=== PATIENT | female | born 1980 | race Caucasian/White ===

== ENCOUNTER 2018-05-07 10:26 | Emergency (ER) | payer BC, MEDICAID, OTHER ==
[2018-05-07] MEDS ORDERED: NORMAL SALINE 1000 ML 1,000 ML IV ONE ×2 (10:52→14:00)
[2018-05-07] MEDS ORDERED: LOPERAMIDE HCL 2 MG CAPSULE PO ONE (10:52)
[2018-05-07] MEDS ORDERED: ONDANSETRON HCL INJ/PF 4 MG/2 ML SDV IV ONE (10:52)
[2018-05-07] MEDS ORDERED: KETOROLAC TROMETHAMINE INJ/PF 30 MG/1 ML SDV IV ONE (10:52)
[2018-05-07 11:53] LABS: ABSOLUTE EOSINOPHILS # (AUTO) 0.1 10^3/uL (0.0-0.6); ABSOLUTE LYMPHOCYTES (AUTO) 1.3 10^3/uL (0.5-4.7); ABSOLUTE MONOCYTES (AUTO) 0.8 10^3/uL (0.1-1.4); ABSOLUTE NEUT (AUTO) 6.8 10^3/uL (1.7-8.2); BASOPHILS % (AUTO) 0.5 % (0-2); EOSINOPHILS % (AUTO) 1.4 % (0-6); HEMATOCRIT 39.4 % (36.0-47.0); HEMOGLOBIN 13.8 g/dL (12.0-15.5); MEAN CORPUSCULAR HGB CONC 34.9 g/dL (32.0-36.0); MEAN CORPUSCULAR VOLUME 83 fl (80-97); MONOCYTES % (AUTO) 9.1 % (3-13); PLATELET COUNT 307 10^3/uL (150-450); RED BLOOD COUNT 4.75 10^6/uL (3.72-5.28); RED CELL DISTRIBUTION WIDTH 13.2 % (11.5-14.0); TOTAL CELLS COUNTED % (AUTO) 100 %
[2018-05-07 12:13] LABS: ALANINE AMINOTRANSFERASE 29 U/L (9-52); ALBUMIN 4.8 g/dL (3.5-5.0); ALKALINE PHOSPHATASE 86 U/L (38-126); ANION GAP 13 (5-19); ASPARTATE AMINO TRANSFERASE 34 U/L (14-36); BILIRUBIN,DIRECT 0.1 mg/dL (0.0-0.4); BILIRUBIN,TOTAL 0.6 mg/dL (0.2-1.3); BLOOD UREA NITROGEN 5 mg/dL (7-20); CARBON DIOXIDE 30 mmol/L (22-30); CHLORIDE 97 mmol/L (98-107); GLUCOSE 90 mg/dL (75-110); POTASSIUM 3.3 mmol/L (3.6-5.0); SODIUM 140.2 mmol/L (137-145); TOTAL PROTEIN 7.8 g/dL (6.3-8.2)
[2018-05-07] MEDS ORDERED: IPRATROPIUM/ALBUTEROL 0.5-2.5 MG/3 ML AMPUL NEB ONE (12:27)
--- NOTE | 2018-05-07 12:27 | ER Document Report ---
Entered by GREGG LLAMAS SCRIBE 05/07/18 1057 Acting as scribe for:JORGE DEJESUS DO ED Medical Screen (RME) - General Chief Complaint: Chest Congestion Stated Complaint: DIZZINESS Time Seen by Provider: 05/07/18 10:47 Primary Care Provider: ESTEPHANIA OROSCO NP [Primary Care Provider] - Follow up as needed Mode of Arrival: Ambulatory Information source: Patient Notes: Patient is a 38 year old female presenting to the emergency department complaining of multiple symptoms including shortness of breath, dizziness, vomiting and a productive cough. Patient states her cough was onset 1 week ago around the same time her daughter was diagnosed with pneumonia. She states approximately 3 days ago she developed vomiting with her last episode occurring last night. She states today she developed dizziness described as "light headedness" and shortness of breath. She also complains of rib pain with coughing. I have greeted and performed a rapid initial assessment of this patient. A comprehensive ED assessment and evaluation of the patient, analysis of test results and completion of the medical decision making process will be conducted by additional ED providers. GENERAL: Alert, appears uncomfortable. HEAD: Normocephalic, Atraumatic. EYES: Pupils equal, round, and reactive to light. EOMI. ENT: Oral mucosa moist, tongue midline. NECK: Full range of motion. Supple. Trachea midline. LUNGS: Appears mildly short of breath, mildly tachpneic. Expiratory rhonchi in the RLL. HEART: Regular rate and rhythm. No murmurs, gallops, or rubs. ABDOMEN: Soft, non-tender. Non-distended. Bowel sounds present in all 4 quadrants. EXTREMITIES: Moves all four extremities spontaneously. PSYCH: Normal affect, normal mood. TRAVEL OUTSIDE OF THE [place] IN LAST 30 DAYS: No - Related Data Allergies/Adverse Reactions: Penicillins Allergy (Severe, Verified 05/07/18 10:26) Swelling of hands and/or feet Sulfa (Sulfonamide Antibiotics) Allergy (Severe, Verified 05/07/18 10:26) Swelling of hands and/or feet latex [Latex] Allergy (Mild, Verified 05/07/18 10:26) rash erythromycin base [Erythromycin Base] Adverse Reaction (Intermediate, Verified 05/07/18 10:26) Generalized Itching Past Medical History - Social History Family history: Reviewed & Not Pertinent - Past Medical History Cardiac Medical History: Denies: Hx Coronary Artery Disease, Hx Heart Attack, Hx Hypertension Pulmonary Medical History: Denies: Hx Asthma, Hx Bronchitis, Hx COPD, Hx Pneumonia Neurological Medical History: Denies: Hx Cerebrovascular Accident, Hx Seizures GI Medical History: Reports: Hx Irritable Bowel Musculoskeltal Medical History: Denies Hx Arthritis Traumatic Medical History: Reports: Hx Fractures - left wrist x 2 - Immunizations Hx Diphtheria, Pertussis, Tetanus Vaccination: Yes - 2010 Physical Exam - Vital signs Vitals: Temp Pulse Resp BP Pulse Ox 98.2 F 110 H 20 144/53 H 100 05/07/18 10:29 05/07/18 10:29 05/07/18 10:29 05/07/18 10:29 05/07/18 10:29 Course - Vital Signs Vital signs: Temp Pulse Resp BP Pulse Ox 98.2 F 110 H 20 144/53 H 100 05/07/18 10:29 05/07/18 10:29 05/07/18 10:29 05/07/18 10:29 05/07/18 10:29 Doctor's Discharge - Discharge Referrals: ESTEPHANIA OROSCO NP [Primary Care Provider] - Follow up as needed I personally performed the services described in the documentation, reviewed and edited the documentation which was dictated to the scribe in my presence, and it accurately records my words and actions.
--- NOTE | 2018-05-07 12:41 | RADIOLOGY REPORT (SQ) ---
EXAM DESCRIPTION: CHEST 2 VIEWS COMPLETED DATE/TIME: 05/07/2018 11:23 am REASON FOR STUDY: cough, shortness of breath COMPARISON: Chest x-ray 02/23/2011. EXAM PARAMETERS: NUMBER OF VIEWS: two views TECHNIQUE: Digital Frontal and Lateral radiographic views of the chest acquired. RADIATION DOSE: NA LIMITATIONS: none FINDINGS: LUNGS AND PLEURA: No consolidation, pneumothorax or pleural effusion. MEDIASTINUM AND HILAR STRUCTURES: No masses or contour abnormalities. HEART AND VASCULAR STRUCTURES: Heart normal size. No evidence for failure. BONES: No acute findings. HARDWARE: None in the chest. IMPRESSION: NO ACUTE RADIOGRAPHIC FINDING IN THE CHEST. TECHNICAL DOCUMENTATION: JOB ID: [id number] 2010 [employer]- All Rights Reserved Reading location - IP/workstation name: [email or web address]
[2018-05-07] MEDS ORDERED: ALBUTEROL SULFATE HFA (90 MCG/PUFF) 8 GM MDI (1 MDI/ER DISP) IH ONE (13:47)
--- NOTE | 2018-05-07 13:48 | ER Document Report ---
ED Respiratory Problem - General Chief Complaint: Chest Congestion Stated Complaint: DIZZINESS Time Seen by Provider: 05/07/18 10:47 Primary Care Provider: ESTEPHANIA OROSCO NP [ALLIED HEALTH PROFESSIONAL] - Follow up as needed Mode of Arrival: Ambulatory Notes: Patient is a 38-year-old female who presents to the emergency department with chief complaint of cough, congestion and dizziness. Patient reports symptoms have been going on for approximately 2-3 days. Denies any fevers, nausea, vomiting or diarrhea. Patient has no significant past medical or surgical history and does not take any medications on a daily basis. TRAVEL OUTSIDE OF THE [place] IN LAST 30 DAYS: No - Related Data Allergies/Adverse Reactions: Penicillins Allergy (Severe, Verified 05/07/18 10:57) Swelling of hands and/or feet Sulfa (Sulfonamide Antibiotics) Allergy (Severe, Verified 05/07/18 10:57) Swelling of hands and/or feet latex [Latex] Allergy (Mild, Verified 05/07/18 10:57) rash erythromycin base [Erythromycin Base] Adverse Reaction (Intermediate, Verified 05/07/18 10:57) Generalized Itching Past Medical History - General Information source: Patient - Social History Smoking Status: Never Smoker Frequency of alcohol use: None Drug Abuse: None Family History: Other Patient has suicidal ideation: No Patient has homicidal ideation: No - Past Medical History Cardiac Medical History: Denies: Hx Coronary Artery Disease, Hx Heart Attack, Hx Hypertension Pulmonary Medical History: Denies: Hx Asthma, Hx Bronchitis, Hx COPD, Hx Pneumonia Neurological Medical History: Denies: Hx Cerebrovascular Accident, Hx Seizures Renal/ Medical History: Denies: Hx Peritoneal Dialysis GI Medical History: Reports: Hx Irritable Bowel Musculoskeletal Medical History: Denies Hx Arthritis Traumatic Medical History: Reports: Hx Fractures - left wrist x 2 Past Surgical History: Reports: Hx Hysterectomy - Immunizations Hx Diphtheria, Pertussis, Tetanus Vaccination: Yes - 2010 Review of Systems - Review of Systems Constitutional: No symptoms reported, Other - Dizziness EENT: Nose congestion, Nose discharge, Sinus discharge Cardiovascular: No symptoms reported Respiratory: Cough Gastrointestinal: No symptoms reported Genitourinary: No symptoms reported Female Genitourinary: No symptoms reported Musculoskeletal: No symptoms reported Skin: No symptoms reported Hematologic/Lymphatic: No symptoms reported Neurological/Psychological: No symptoms reported Physical Exam - Vital signs Vitals: Temp Pulse Resp BP Pulse Ox 98.2 F 110 H 20 144/53 H 100 05/07/18 10:29 05/07/18 10:29 05/07/18 10:29 05/07/18 10:29 05/07/18 10:29 - Notes Notes: PHYSICAL EXAMINATION: GENERAL: Well-appearing, well-nourished and in no acute distress. HEAD: Atraumatic, normocephalic. EYES: Pupils equal round and reactive to light, extraocular movements intact, conjunctiva are normal. ENT: Nares patent, oropharynx clear without exudates. Moist mucous membranes. NECK: Normal range of motion, supple without lymphadenopathy LUNGS: Faint expiratory wheezes noted bilaterally. No increased work of breathing. HEART: Regular rate and rhythm without murmurs ABDOMEN: Soft, nontender, nondistended abdomen. No guarding, no rebound. No masses appreciated. Female : deferred Musculoskeletal: Normal range of motion, no pitting or edema. No cyanosis. NEUROLOGICAL: Cranial nerves grossly intact. Normal speech, normal gait. Normal sensory, motor exams PSYCH: Normal mood, normal affect. SKIN: Warm, Dry, normal turgor, no rashes or lesions noted. Course - Re-evaluation Re-evalutation: CMP shows potassium of 3.3. CBC is unremarkable. Patient given potassium replacement. Patient reports dizziness has improved after administration of meclizine. Chest x-ray negative for any acute findings to include pneumothorax or infiltrate. Patient will be discharged home in stable condition at this time. Strict ED return precautions discussed. - Vital Signs Vital signs: Temp Pulse Resp BP Pulse Ox 98.1 F 90 16 119/72 100 05/07/18 15:03 05/07/18 15:03 05/07/18 15:03 05/07/18 15:03 05/07/18 15:03 - Laboratory Result Diagrams: 05/07/18 11:32 05/07/18 11:32 Laboratory results interpreted by me: 05/07/18 11:32 Potassium 3.3 L Chloride 97 L BUN 5 L Discharge - Discharge Clinical Impression: Upper respiratory infection Qualifiers: URI type: unspecified URI Qualified Code(s): J06.9 - Acute upper respiratory infection, unspecified Condition: Stable Disposition: HOME, SELF-CARE Instructions: Upper Respiratory Illness ([facility]) Additional Instructions: Your chest x-ray was negative. Your symptoms are most likely consistent with a viral upper respiratory infection. I am sending you home with an albuterol inhaler, use 2 puffs every 4 hours as needed for any wheezing or shortness of breath. Please get the prescription filled for prednisone, start taking this to day. Please follow-up with your primary care provider in the next 3-5 days for follow-up. Drink plenty of fluids and rest over the next few days. Return to the emergency department if you develop worsening shortness of breath, difficulty breathing, fevers not relieved by Tylenol or ibuprofen or any other symptom that is concerning to you. Prescriptions: Meclizine HCl [Antivert 25 mg Tablet] 25 mg PO TID PRN #21 tablet PRN Reason: Prednisone [Deltasone 20 mg Tablet] 3 tab PO DAILY 5 Days #15 tablet Forms: Return to Work Referrals: ESTEPHANIA OROSCO, KRYSTLE [ALLIED HEALTH PROFESSIONAL] - Follow up as needed
[2018-05-07] MEDS ORDERED: MECLIZINE HCL 25 MG TABLET PO ONE (14:00)
[2018-05-07 15:10] VITALS: BP 119/72
== END 2018-05-07 15:05 | disposition home or self-care (01) ==
LOC: ER 10:26
DX: J06.9 Acute upper respiratory infection, unspecified (principal); R09.89 Other specified symptoms and signs involving the circulatory and respiratory systems; R42 Dizziness and giddiness; R05 Cough; R09.81 Nasal congestion
CPT/HCPCS: 94640; 99284; 96361; 96374; 96375; 36415; 85025; 80053; 71046; J1885; J2405; J7030; J3490; J7620

== ENCOUNTER 2019-04-25 12:31 | Inpatient (IN) | payer MEDICAID, OTHER ==
--- NOTE | 2019-04-25 13:01 | ER Document Report ---
ED Medical Screen (RME) - General Chief Complaint: Breathing Difficulty Stated Complaint: DIFFICULTY BREATHING Time Seen by Provider: 04/25/19 12:58 Mode of Arrival: Ambulatory Information source: Patient Notes: 39-year-old female presented to ED for complaint of shortness of breath and chest pain since last week when they diagnosed with upper respiratory infection. They started on azithromycin and Mucinex on Tuesday. She also has a tremor which she says she has had for a long time but they have not been able to figure out what the tremors are from. She states her pain is in her chest through to her back. EKG has a pulse rate of 130 apically she is running 140 at this time. I have greeted and performed a rapid initial assessment of this patient. A comprehensive ED assessment and evaluation of the patient, analysis of test results and completion of medical decision making process will be conducted by an additional ED providers. TRAVEL OUTSIDE OF THE [place] IN LAST 30 DAYS: No - Related Data Allergies/Adverse Reactions: Penicillins Allergy (Severe, Verified 05/07/18 10:57) Swelling of hands and/or feet Sulfa (Sulfonamide Antibiotics) Allergy (Severe, Verified 05/07/18 10:57) Swelling of hands and/or feet latex [Latex] Allergy (Mild, Verified 05/07/18 10:57) rash erythromycin base [Erythromycin Base] Adverse Reaction (Intermediate, Verified 05/07/18 10:57) Generalized Itching Past Medical History - Social History Family history: Reviewed & Not Pertinent - Past Medical History Cardiac Medical History: Denies: Hx Coronary Artery Disease, Hx Heart Attack, Hx Hypertension Pulmonary Medical History: Denies: Hx Asthma, Hx Bronchitis, Hx COPD, Hx Pneumonia Neurological Medical History: Denies: Hx Cerebrovascular Accident, Hx Seizures Renal/ Medical History: Denies: Hx Peritoneal Dialysis GI Medical History: Reports: Hx Irritable Bowel Musculoskeltal Medical History: Denies Hx Arthritis Traumatic Medical History: Reports: Hx Fractures - left wrist x 2 Past Surgical History: Reports: Hx Hysterectomy - Immunizations Hx Diphtheria, Pertussis, Tetanus Vaccination: Yes - 2010 Physical Exam - Vital signs Vitals: Temp Pulse Resp BP Pulse Ox 99.1 F 132 H 22 H 132/77 H 97 04/25/19 12:38 04/25/19 12:38 04/25/19 12:38 04/25/19 12:38 04/25/19 12:38 Course - Vital Signs Vital signs: Temp Pulse Resp BP Pulse Ox 99.1 F 132 H 22 H 132/77 H 97 04/25/19 12:38 04/25/19 12:38 04/25/19 12:38 04/25/19 12:38 04/25/19 12:38
[2019-04-25] MEDS ORDERED: ASPIRIN 81 MG TABLET, CHEWABLE PO ONE (13:02)
[2019-04-25 13:45] LABS: APPEARANCE,URINE CLEAR; BILIRUBIN,URINE NEGATIVE (NEGATIVE); COLOR,URINE STRAW; GLUCOSE, URINE NEGATIVE (NEGATIVE); KETONES,URINE NEGATIVE (NEGATIVE); LEUKOCYTE ESTERASE,URINE NEGATIVE (NEGATIVE); NITRITE,URINE NEGATIVE (NEGATIVE); PROTEIN,URINE NEGATIVE (NEGATIVE); URINE SPECIFIC GRAVITY 1.004; UROBILINOGEN,URINE NEGATIVE mg/dL (<2.0)
--- NOTE | 2019-04-25 13:49 | RADIOLOGY REPORT (SQ) ---
EXAM DESCRIPTION: CHEST 2 VIEWS COMPLETED DATE/TIME: 04/25/2019 1:22 pm REASON FOR STUDY: Chest pain shortness of breath tachycardia COMPARISON: PA and lateral views of the chest from 05/07/2018. EXAM PARAMETERS: NUMBER OF VIEWS: Two views. TECHNIQUE: PA and lateral views of the chest were obtained.. RADIATION DOSE: NA LIMITATIONS: none FINDINGS: LUNGS AND PLEURA: Asymmetric opacities in the right lower lobe. There is no pleural effus ion or pneumothorax. MEDIASTINUM AND HILAR STRUCTURES: No mediastinal or hilar contour abnormality. HEART AND VASCULAR STRUCTURES: The cardiac silhouette and pulmonary vasculature are within normal gardner its. BONES: No acute findings. HARDWARE: None in the chest. OTHER: No other finding. IMPRESSION: Asymmetric opacities in the right lower lobe. Correlate with clinical findings to exclu de a right lower lobe pneumonia. TECHNICAL DOCUMENTATION: JOB ID: [id number] [employer]- All Rights Reserved Reading location - IP/workstation name: [email or web address]
[2019-04-25] MEDS ORDERED: NORMAL SALINE 1000 ML 1,000 ML IV ONE ×2 (13:55→15:34)
[2019-04-25 13:58] LABS: ABSOLUTE BASOPHILS # (AUTO) 0.1 10^3/uL (0.0-0.2); ABSOLUTE LYMPHOCYTES (AUTO) 0.7 10^3/uL (0.5-4.7); ABSOLUTE MONOCYTES (AUTO) 0.3 10^3/uL (0.1-1.4); ABSOLUTE NEUT (AUTO) 7.6 10^3/uL (1.7-8.2); EOSINOPHILS % (AUTO) 0.1 % (0-6); HEMATOCRIT 41.5 % (36.0-47.0); HEMOGLOBIN 14.6 g/dL (12.0-15.5); LYMPHOCYTES % (AUTO) 8.4 % (13-45); MEAN CORPUSCULAR HEMOGLOBIN 29.1 pg (27.0-33.4); MEAN CORPUSCULAR HGB CONC 35.2 g/dL (32.0-36.0); MEAN CORPUSCULAR VOLUME 83 fl (80-97); MONOCYTES % (AUTO) 3.4 % (3-13); PLATELET COUNT 214 10^3/uL (150-450); RED BLOOD COUNT 5.01 10^6/uL (3.72-5.28); RED CELL DISTRIBUTION WIDTH 13.5 % (11.5-14.0); SEGMENTED NEUTROPHILS % (AUTO) 87.1 % (42-78); TOTAL CELLS COUNTED % (AUTO) 100 %; WHITE BLOOD COUNT 8.8 10^3/uL (4.0-10.5)
[2019-04-25 14:22] LABS: ALBUMIN 4.7 g/dL (3.5-5.0); ALKALINE PHOSPHATASE 125 U/L (38-126); ANION GAP 10 (5-19); ASPARTATE AMINO TRANSFERASE 87 U/L (14-36); BILIRUBIN,TOTAL 0.4 mg/dL (0.2-1.3); BLOOD UREA NITROGEN 8 mg/dL (7-20); CALCIUM 9.3 mg/dL (8.4-10.2); CARBON DIOXIDE 28 mmol/L (22-30); CHLORIDE 100 mmol/L (98-107); GLUCOSE 92 mg/dL (75-110); POTASSIUM 3.9 mmol/L (3.6-5.0)
[2019-04-25] MEDS ORDERED: CEFEPIME 2 GM/D5W RTU 2 GM/50 ML RTUPB IV ONE (15:34)
[2019-04-25] MEDS ORDERED: LEVOFLOXACIN 750 MG/D5W RTU 750 MG/150 ML RTUPB IV ONE (15:34)
[2019-04-25] MEDS ORDERED: IPRATROPIUM/ALBUTEROL 0.5-2.5 MG/3 ML AMPUL NEB ONE (15:34)
[2019-04-25] MEDS ORDERED: VANCOMYCIN HCL INJ 1000 MG VIAL IV ONE (15:35)
[2019-04-25] MEDS ORDERED: ACETAMINOPHEN 325 MG TABLET PO ONE (15:36)
--- NOTE | 2019-04-25 15:44 | ER Document Report ---
ED Respiratory Problem - General Chief Complaint: Chest Pain Stated Complaint: DIFFICULTY BREATHING Time Seen by Provider: 04/25/19 12:58 Mode of Arrival: Ambulatory Notes: Patient is a 39-year-old female with a history of IBS who comes in today with increased cough and difficulty breathing. Patient states that she was tired with a fever earlier this week and was started on azithromycin on Tuesday for bronchitis. States that difficulty breathing has gotten worse and now she feels lightheaded when she is sitting up. Has a history of asthma as a child. Unknown flu status. Denies . No other meds at home. Allergic to penicillin but is able to take amoxicillin. TRAVEL OUTSIDE OF THE [place] IN LAST 30 DAYS: No - HPI Patient complains to provider of: Short of breath Onset: Other - weejendLast Duration: Worse/persistent Quality of pain: Achy, Dull Chest pain/discomfort: Center Cough: Productive Sputum amount: Scant At home treatment: denies: Bronchodilators, CPAP, Diuretics, Inhaled steroids, Oral steroids, Oxygen, Singulair, Theophylline Associated symptoms: Fever Similar symptoms previously: No Recently seen / treated by doctor: Yes - Related Data Allergies/Adverse Reactions: Penicillins Allergy (Severe, Verified 04/25/19 13:06) Swelling of hands and/or feet Sulfa (Sulfonamide Antibiotics) Allergy (Severe, Verified 04/25/19 13:06) Swelling of hands and/or feet latex [Latex] Allergy (Mild, Verified 04/25/19 13:06) rash erythromycin base [Erythromycin Base] Adverse Reaction (Intermediate, Verified 04/25/19 13:06) Generalized Itching Past Medical History - General Information source: Patient - Social History Smoking Status: Never Smoker Frequency of alcohol use: None Drug Abuse: None Family History: Other Patient has suicidal ideation: No Patient has homicidal ideation: No - Past Medical History Cardiac Medical History: Denies: Hx Coronary Artery Disease, Hx Heart Attack, Hx Hypertension Pulmonary Medical History: Denies: Hx Asthma, Hx Bronchitis, Hx COPD, Hx Pneumonia Neurological Medical History: Denies: Hx Cerebrovascular Accident, Hx Seizures Renal/ Medical History: Denies: Hx Peritoneal Dialysis GI Medical History: Reports: Hx Irritable Bowel Musculoskeletal Medical History: Denies Hx Arthritis Traumatic Medical History: Reports: Hx Fractures - left wrist x 2 Past Surgical History: Reports: Hx Hysterectomy - Immunizations Hx Diphtheria, Pertussis, Tetanus Vaccination: Yes - 2010 Review of Systems - Review of Systems -: Yes All other systems reviewed and negative Physical Exam - Vital signs Vitals: Temp Pulse Resp BP Pulse Ox 99.1 F 132 H 22 H 132/77 H 97 04/25/19 12:38 04/25/19 12:38 04/25/19 12:38 04/25/19 12:38 04/25/19 12:38 Interpretation: Tachycardic, Tachypneic, Febrile - General General appearance: Alert In distress: Mild - HEENT Head: Normocephalic, Atraumatic Eyes: Normal Cornea: Normal Extraocular movements intact: Yes Mucous membranes: Dry Pharynx: Normal Neck: Normal - Respiratory Respiratory status: Tachypnea Breath sounds: Decreased air movement - b/l - Cardiovascular Rhythm: Tachycardia - Abdominal Inspection: Normal Distension: No distension Bowel sounds: Normal Tenderness: Nontender - Back Back: Normal - Extremities General upper extremity: Normal inspection, Nontender, Normal ROM General lower extremity: Normal inspection, Nontender, Normal ROM - Neurological Neuro grossly intact: Yes Cognition: Normal Orientation: AAOx4 Neo Coma Scale Eye Opening: Spontaneous [place] Coma Scale Verbal: Oriented Speech: Normal - Psychological Associated symptoms: Normal affect, Normal mood - Skin Skin Temperature: Warm Skin Moisture: Moist Skin Color: Flushed Course - Re-evaluation Re-evalutation: 04/25/19 15:45 Patient with clinical symptoms and chest x-ray consistent with pneumonia. Heart rate is 140 currently. Patient will have blood cultures and lactic sent and antibiotics initiated, as well as 30 mill liters per kilogram fluid bolus. She will require admission as she is on 2 L of oxygen to maintain her airway saturation. We will attempt to do nebulizer treatment and steroids to increase air movement. Patient is agreeable to this plan. 04/25/19 16:05 Patient discussed with hospitalist service. Will admit to IMCU. Patient is agreeable to this plan. Blood cultures, urine cultures, antibiotics initiated in the emergency department. - Vital Signs Vital signs: Temp Pulse Resp BP Pulse Ox 99.1 F 120 H 22 H 117/48 L 98 04/25/19 18:47 04/25/19 20:53 04/25/19 20:53 04/25/19 18:47 04/25/19 20:53 - Laboratory Result Diagrams: 04/25/19 13:40 04/25/19 13:40 Laboratory results interpreted by me: 04/25/19 04/25/19 04/25/19 13:05 13:40 13:40 Lymph % (Auto) 8.4 L Seg Neutrophils % 87.1 H D-Dimer Creatinine 0.48 L AST 87 H Urine Blood SMALL H 04/25/19 13:40 Lymph % (Auto) Seg Neutrophils % D-Dimer 0.54 H Creatinine AST Urine Blood - Diagnostic Test Radiology reviewed: Image reviewed, Reports reviewed - EKG Interpretation by Me EKG shows normal: Sinus rhythm Rate: Tachycardia - 130 Rhythm: No: A.Fib, A.Flutter Critical Care Note - Critical Care Note Total time excluding time spent on procedures (mins): 40 - Evaluation and management, multiple re-evaluations, consultation and coordination of admission, counseling patient and family. Discharge - Discharge Clinical Impression: Hypoxia Pneumonia Qualifiers: Pneumonia type: due to unspecified organism Laterality: right Lung location: unspecified part of lung Qualified Code(s): J18.9 - Pneumonia, unspecified organism Sepsis Qualifiers: Sepsis type: sepsis due to unspecified organism Sepsis acute organ dysfunction status: without acute organ dysfunction Qualified Code(s): A41.9 - Sepsis, unspecified organism Condition: Stable Disposition: ADMITTED INPATIENT Admitting Provider: Janine (Hospitalist) - Day Unit Admitted: [facility]
[2019-04-25 16:12] LABS: VENOUS BLOOD BASE EXCESS 0.1 mmol/L; VENOUS BLOOD HCO3 24.5 mmol/L (20-32); VENOUS BLOOD PCO2 38.8 mmHg (35-63); VENOUS BLOOD PH 7.42 (7.30-7.42)
[2019-04-25 16:23] LABS: INTERNATIONAL RATION (INR) 0.92; PROTHROMBIN TIME 12.3 SEC (11.4-15.4)
[2019-04-25] MEDS ORDERED: PROMETHAZINE HCL INJ 25 MG/1 ML VIAL IV PRN (16:30)
[2019-04-25] MEDS ORDERED: HYDROMORPHONE HCL INJ/PF 2 MG/ML AMPULE IV ONE (16:33)
--- NOTE | 2019-04-25 16:56 | PDOC H&P ---
History of Present Illness Admission Date/PCP: 04/25/2019 History of Present Illness: GLENDA CALLEJAS is a 39 year old female who states that since last Tuesday or 6 days ago she started feeling bad. Darted off with feeling tired fever and chills and a light cough she said in a couple days that seem to get better but then by Tuesday the cough is getting worse. It is mostly nonproductive. He went to an urgent care 2 days ago on Tuesday she said they thought her she had an upper respiratory illness and put her on a Z-Nick. No flu swab no chest x-ray was performed. States today she started feeling worse with a "hurting to breathe", shortness of breath and just feeling more tired. Patient states she has had no chest pain per se but she does have chest wall pain with deep inspiration and expiration. No nausea no vomiting. Patient does not smoke. 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 Etiology is unknown, patient says she has had an MRI scan of the brain which was normal. Past Medical History Cardiac Medical History: Denies: Coronary Artery Disease, Myocardial Infarction, Hypertension Pulmonary Medical History: Denies: Asthma, Bronchitis, Chronic Obstructive Pulmonary Disease (COPD), Pneumonia Neurological Medical History: Denies: Seizures Musculoskeltal Medical History: Denies: Arthritis Hematology: Reports: Anemia - hx of Past Surgical History Past Surgical History: Reports: Hysterectomy Social History Smoking Status: Never Smoker - Advance Directive Resuscitation Status: Full Code Family History Family History: Other Parental Family History Reviewed: No Children Family History Reviewed: No Sibling(s) Family History Reviewed.: No Medication/Allergy Home Medications: Azithromycin 1 tab PO ASDIR PRN 04/25/19 Allergies/Adverse Reactions: Penicillins Allergy (Severe, Verified 04/25/19 13:06) Swelling of hands and/or feet Sulfa (Sulfonamide Antibiotics) Allergy (Severe, Verified 04/25/19 13:06) Swelling of hands and/or feet latex [Latex] Allergy (Mild, Verified 04/25/19 13:06) rash erythromycin base [Erythromycin Base] Adverse Reaction (Intermediate, Verified 04/25/19 13:06) Generalized Itching Review of Systems Constitutional: PRESENT: chills, fatigue, fever(s), weakness Respiratory: PRESENT: cough Gastrointestinal: PRESENT: other - Rehab for the last 3 days secondary to his Zi thromax Neurological: ABSENT: abnormal gait, abnormal speech, confusion, dizziness, focal weakness, syncope Psychiatric: ABSENT: anxiety, depression, homidical ideation, suicidal ideation Physical Exam Vital Signs: Temp Pulse Resp BP Pulse Ox 100.6 F H 140 H 28 H 126/64 H 98 04/25/19 14:44 04/25/19 13:08 04/25/19 16:01 04/25/19 16:00 04/25/19 16:01 Intake & Output 04/24/19 04/25/19 04/26/19 06:59 06:59 06:59 Intake Total 1000 Balance 1000 Weight 68.039 kg General appearance: PRESENT: mild distress Respiratory exam: PRESENT: decreased breath sounds, tachypnea Cardiovascular exam: PRESENT: tachycardia Neurological exam: PRESENT: alert, awake, oriented to person, oriented to place, oriented to time, oriented to situation, CN II-XII grossly intact. ABSENT: motor sensory deficit Psychiatric exam: PRESENT: anxious Results Laboratory Results: 04/25/19 13:40 04/25/19 13:40 04/25/19 04/25/19 04/25/19 13:05 13:40 13:40 WBC 8.8 RBC 5.01 Hgb 14.6 Hct 41.5 MCV 83 MCH 29.1 MCHC 35.2 RDW 13.5 Plt Count 214 Seg Neutrophils % 87.1 H VBG pH VBG pCO2 VBG HCO3 VBG Base Excess Sodium 137.7 Potassium 3.9 Chloride 100 Carbon Dioxide 28 Anion Gap 10 BUN 8 Creatinine 0.48 L Est GFR ( Amer) > 60 Glucose 92 Lactic Acid Calcium 9.3 Total Bilirubin 0.4 AST 87 H Alkaline Phosphatase 125 Total Protein 8.0 Albumin 4.7 Serum HCG, Qual Urine Color STRAW Urine Appearance CLEAR Urine pH 7.0 Ur Specific [place] 1.004 Urine Protein NEGATIVE Urine Glucose (UA) NEGATIVE Urine Ketones NEGATIVE Urine Blood SMALL H Urine Nitrite NEGATIVE Ur Leukocyte Esterase NEGATIVE Urine WBC (Auto) 4 Urine RBC (Auto) 1 04/25/19 04/25/19 04/25/19 13:40 15:53 15:53 WBC RBC Hgb Hct MCV MCH MCHC RDW Plt Count Seg Neutrophils % VBG pH 7.42 VBG pCO2 38.8 VBG HCO3 24.5 VBG Base Excess 0.1 Sodium Potassium Chloride Carbon Dioxide Anion Gap BUN Creatinine Est GFR ( Amer) Glucose Lactic Acid 1.1 Calcium Total Bilirubin AST Alkaline Phosphatase Total Protein Albumin Serum HCG, Qual NEGATIVE Urine Color Urine Appearance Urine pH Ur Specific [place] Urine Protein Urine Glucose (UA) Urine Ketones Urine Blood Urine Nitrite Ur Leukocyte Esterase Urine WBC (Auto) Urine RBC (Auto) 04/25/19 13:40 Troponin I < 0.012 Impressions: Chest X-Ray 04/25/19 13:02 IMPRESSION: Asymmetric opacities in the right lower lobe. Correlate with clinical findings to exclude a right lower lobe pneumonia. Assessment and Plan - Diagnosis (1) Tachycardia Is this a current diagnosis for this admission?: Yes (2) Hypoxia Is this a current diagnosis for this admission?: Yes (3) Pneumonia Is this a current diagnosis for this admission?: Yes - Plan Summary Summary: Will put patient in the hospital for IV fluids, hydration, IV antibiotics.. I have ordered a flu swab in the emergency room as well as a d-dimer. Also patient will get IV pain medication. I think patient's tachycardia will come down when she gets more fluids as well as IV pain medicine. She has had 3 days of diarrhea secondary to the Zithromax. I have explained all this to the patient and her mother who was is in the room - Time Time Spent with patient: 35 or more minutes
[2019-04-25] MEDS: NORMAL SALINE 1000 ML 1,000 ML IV PRN (17:39)
[2019-04-25] MEDS: OXYCODONE-ACETAMINOPHEN 5-325 MG TABLET PO PRN ×2 (18:04→22:19)
[2019-04-25] MEDS: ENOXAPARIN SODIUM INJ 40 MG/0.4 ML DISP.SYRIN SUBCUT SCH (18:12)
--- NOTE | 2019-04-25 18:35 | EKG REPORT ---
SEVERITY:- OTHERWISE NORMAL ECG - SINUS TACHYCARDIA : Confirmed by: Katherine Vasquez MD 25-Apr-2019 18:34:57
[2019-04-25 19:54] LABS: A TYPE INFLUENZA AG NEGATIVE (NEGATIVE); B INFLUENZA AG NEGATIVE (NEGATIVE)
[2019-04-25] MEDS: LEVALBUTEROL HCL NEB 1.25 MG/3 ML AMPUL NEB PRN (20:53)
[2019-04-25] MEDS: ACETAMINOPHEN 325 MG TABLET PO PRN (20:55)
[2019-04-25] MEDS: FAMOTIDINE 20 MG TABLET PO SCH (21:05)
[2019-04-26] MEDS: NORMAL SALINE 1000 ML 1,000 ML IV PRN ×3 (00:05→17:17)
[2019-04-26] MEDS: OXYCODONE-ACETAMINOPHEN 5-325 MG TABLET PO PRN ×6 (03:35→23:19)
[2019-04-26] MEDS: LEVALBUTEROL HCL NEB 1.25 MG/3 ML AMPUL NEB PRN (03:45)
[2019-04-26 05:55] LABS: HEMATOCRIT 32.8 % (36.0-47.0); MEAN CORPUSCULAR VOLUME 83 fl (80-97); PLATELET COUNT 159 10^3/uL (150-450); RED BLOOD COUNT 3.96 10^6/uL (3.72-5.28); RED CELL DISTRIBUTION WIDTH 13.5 % (11.5-14.0)
[2019-04-26 05:59] LABS: HEMOGLOBIN 11.5 g/dL (12.0-15.5)
[2019-04-26] MEDS: CEFEPIME 1 GM/D5W RTU 1 GM/50 ML RTUPB IV SCH ×2 (06:00→17:21)
[2019-04-26 06:18] LABS: ANION GAP 12 (5-19); BLOOD UREA NITROGEN 5 mg/dL (7-20); CALCIUM 7.5 mg/dL (8.4-10.2); CARBON DIOXIDE 20 mmol/L (22-30); CHLORIDE 105 mmol/L (98-107); GLUCOSE 105 mg/dL (75-110); POTASSIUM 3.2 mmol/L (3.6-5.0)
[2019-04-26 07:13] LABS: ABSOLUTE LYMPHOCYTES# (MANUAL) 0.9 10^3/uL (0.5-4.7); ABSOLUTE MONOCYTES # (MANUAL) 0.1 10^3/uL (0.1-1.4); BAND NEUTROPHILS % (MANUAL) 3 % (3-5); BASOPHILS % (MANUAL) 0 % (0-2); EOSINOPHILS % (MANUAL) 0 % (0-6); LYMPHOCYTES % (MANUAL) 7 % (13-45); MONOCYTES % (MANUAL) 1 % (3-13); PLATELET COMMENT ADEQUATE; RBC MORPHOLOGY COMMENT NORMO-CYTIC/CHROMIC; SEGMENTED NEUTROPHILS % (MAN) 89 % (42-78); TOTAL CELLS COUNTED 100
[2019-04-26] MEDS: FAMOTIDINE 20 MG TABLET PO SCH ×2 (09:15→21:06)
[2019-04-26] MEDS: ENOXAPARIN SODIUM INJ 40 MG/0.4 ML DISP.SYRIN SUBCUT SCH (09:15)
[2019-04-26] MEDS: DOCUSATE SODIUM 100 MG CAPSULE PO SCH (09:16)
[2019-04-26] MEDS ORDERED: PROMETHAZINE HCL INJ 25 MG/1 ML VIAL IV PRN (10:30)
--- NOTE | 2019-04-26 11:19 | RADIOLOGY REPORT (SQ) ---
EXAM DESCRIPTION: CTA CHEST COMPLETED DATE/TIME: 04/26/2019 11:03 am REASON FOR STUDY: pneumonia, elevated DDimer COMPARISON: Chest films 04/25/2019, 05/07/2018 TECHNIQUE: CT scan of the chest performed using helical scanning technique with dynamic intravenous contrast injection. Images reviewed with lung, soft tissue and bone windows. Reconstructed coronal and sagittal MPR images reviewed. Additional 3 dimensional post-processing performed to develop Maximal Intensity Projection images ([place] P). All images stored on PACS. All CT scanners at this facility use dose modulation, iterative reconstruction, and/or weight based d osing when appropriate to reduce radiation dose to as low as reasonably achievable (ALARA). [facility]: Dose Right [facility]: CareDose [facility]: Dose Right [facility]: Teradose 4D [facility]: KeepFu CONTRAST TYPE AND DOSE: contrast/concentration: Isovue 350.00 mg/ml; Total Contrast Delivered: 50.0 ml; Total Saline Delivered: 80.0 ml Contrast bolus adequate for pulmonary arteries and aorta. RENAL FUNCTION: Creatinine 0.5 RADIATION DOSE: CT Rad equipment meets quality standard of care and radiation dose reduction techniq ues were employed. CTDIvol: 5.6 - 8.7 mGy. DLP: 317 mGy-cm. . LIMITATIONS: None. FINDINGS: LUNGS AND PLEURA: Dense consolidation is present in the bilateral lower lobes from pneumon ia. Patchy airspace disease right middle lobe. No pleural effusion. No pneumothorax. AORTA AND GREAT VESSELS: No aneurysm. No dissection. HEART: No pericardial effusion. No significant coronary artery calcifications. PULMONARY ARTERIES: No emboli visualized in the main pulmonary arteries or the segmental branches. HILAR AND MEDIASTINAL STRUCTURES: No identified masses or abnormal nodes. HARDWARE: None in the chest. UPPER ABDOMEN: No significant findings. Limited exam. THYROID AND OTHER SOFT TISSUES: No masses. No adenopathy. BONES: No acute or significant finding. 3D MIPS: Confirm above findings. OTHER: No other significant finding. IMPRESSION: No CT angio evidence of acute pulmonary emboli or thoracic aortic dissection Dense consolidation in the bilateral lower lobes worrisome for pneumonia. Minimal patchy right middl e lobe airspace disease COMMENT: Quality ID # [id number]: Final reports with documentation of one or more dose reduction techniques (e.g., Automated exposure control, adjustment of the mA and/or kV according to patient size, use of iterative reconstruction technique) TECHNICAL DOCUMENTATION: JOB ID: [id number] [employer]- All Rights Reserved Reading location - IP/workstation name: [email or web address]
[2019-04-26] MEDS: ACETAMINOPHEN 325 MG TABLET PO PRN (11:27)
[2019-04-26] MEDS: LEVOFLOXACIN 750 MG/D5W RTU 750 MG/150 ML RTUPB IV SCH (11:27)
--- NOTE | 2019-04-26 11:55 | PDOC PROGRESS REPORT ---
Subjective Progress Note for:: 04/26/19 Reason For Visit: PNEUMONIA,HYPOXIA,TACHYCARDIA,IRRITABLE BOWEL 04/26/2019 Patient admitted for shortness of breath, tachycardia, pneumonia Physical Exam Vital Signs: Temp Pulse Resp BP Pulse Ox 102.3 F H 74 18 122/62 98 04/26/19 11:19 04/26/19 11:19 04/26/19 11:19 04/26/19 11:19 04/26/19 11:19 Intake & Output 04/25/19 04/26/19 04/27/19 06:59 06:59 06:59 Intake Total 4415 418 Output Total 2 Balance 4413 418 Weight 71.6 kg General appearance: PRESENT: mild distress, other - Secondary to tachycardia and chest wall pain Respiratory exam: PRESENT: decreased breath sounds Cardiovascular exam: PRESENT: tachycardia Neurological exam: PRESENT: alert, awake, oriented to person, oriented to place, oriented to time, oriented to situation, CN II-XII grossly intact. ABSENT: motor sensory deficit Psychiatric exam: PRESENT: anxious Results Laboratory Results: 04/26/19 05:01 04/26/19 05:01 04/25/19 04/25/19 04/25/19 13:05 13:40 13:40 WBC 8.8 RBC 5.01 Hgb 14.6 Hct 41.5 MCV 83 MCH 29.1 MCHC 35.2 RDW 13.5 Plt Count 214 Seg Neutrophils % 87.1 H VBG pH VBG pCO2 VBG HCO3 VBG Base Excess Sodium 137.7 Potassium 3.9 Chloride 100 Carbon Dioxide 28 Anion Gap 10 BUN 8 Creatinine 0.48 L Est GFR ( Amer) > 60 Glucose 92 Lactic Acid Calcium 9.3 Total Bilirubin 0.4 AST 87 H Alkaline Phosphatase 125 Total Protein 8.0 Albumin 4.7 Serum HCG, Qual Urine Color STRAW Urine Appearance CLEAR Urine pH 7.0 Ur Specific [place] 1.004 Urine Protein NEGATIVE Urine Glucose (UA) NEGATIVE Urine Ketones NEGATIVE Urine Blood SMALL H Urine Nitrite NEGATIVE Ur Leukocyte Esterase NEGATIVE Urine WBC (Auto) 4 Urine RBC (Auto) 1 04/25/19 04/25/19 04/25/19 13:40 15:53 15:53 WBC RBC Hgb Hct MCV MCH MCHC RDW Plt Count Seg Neutrophils % VBG pH 7.42 VBG pCO2 38.8 VBG HCO3 24.5 VBG Base Excess 0.1 Sodium Potassium Chloride Carbon Dioxide Anion Gap BUN Creatinine Est GFR ( Amer) Glucose Lactic Acid 1.1 Calcium Total Bilirubin AST Alkaline Phosphatase Total Protein Albumin Serum HCG, Qual NEGATIVE Urine Color Urine Appearance Urine pH Ur Specific [place] Urine Protein Urine Glucose (UA) Urine Ketones Urine Blood Urine Nitrite Ur Leukocyte Esterase Urine WBC (Auto) Urine RBC (Auto) 04/26/19 04/26/19 05:01 05:01 WBC 13.0 H RBC 3.96 Hgb 11.5 L D Hct 32.8 L MCV 83 MCH 29.0 MCHC 35.0 RDW 13.5 Plt Count 159 Seg Neutrophils % Not Reportable VBG pH VBG pCO2 VBG HCO3 VBG Base Excess Sodium 136.7 L Potassium 3.2 L Chloride 105 Carbon Dioxide 20 L Anion Gap 12 BUN 5 L Creatinine 0.40 L Est GFR ( Amer) > 60 Glucose 105 Lactic Acid Calcium 7.5 L Total Bilirubin AST Alkaline Phosphatase Total Protein Albumin Serum HCG, Qual Urine Color Urine Appearance Urine pH Ur Specific [place] Urine Protein Urine Glucose (UA) Urine Ketones Urine Blood Urine Nitrite Ur Leukocyte Esterase Urine WBC (Auto) Urine RBC (Auto) 04/25/19 13:40 Troponin I < 0.012 Impressions: Chest X-Ray 04/25/19 13:02 IMPRESSION: Asymmetric opacities in the right lower lobe. Correlate with clinical findings to exclude a right lower lobe pneumonia. Chest/Abdomen CTA 04/26/19 00:00 IMPRESSION: No CT angio evidence of acute pulmonary emboli or thoracic aortic dissection Dense consolidation in the bilateral lower lobes worrisome for pneumonia. Minimal patchy right middle lobe airspace disease Assessment and Plan - Diagnosis (1) Tachycardia Is this a current diagnosis for this admission?: Yes (2) Hypoxia Is this a current diagnosis for this admission?: Yes (3) Pneumonia Qualifiers: Pneumonia type: due to unspecified organism Laterality: right Lung location: unspecified part of lung Qualified Code(s): J18.9 - Pneumonia, unspecified organism Is this a current diagnosis for this admission?: Yes - Plan Summary Summary: Will put patient in the hospital for IV fluids, hydration, IV antibiotics.. I have ordered a flu swab in the emergency room as well as a d-dimer. Also patient will get IV pain medication. I think patient's tachycardia will come down when she gets more fluids as well as IV pain medicine. She has had 3 days of diarrhea secondary to the Zithromax. I have explained all this to the patient and her mother who was is in the room 04/26/2019 Patient's fever has spiked up to 102.3 blood pressure still stable at 122/62 however patient is still tachycardic around 120-130 Oxygen saturation remains good however at 98% on [address] angiogram of the chest today showed no evidence of pulmonary embolism however it did show bilateral lower lobe pneumonia as well as a right middle lobe pneumonia White count is gone from 8.8 up to 13,000 Flu swab is negative Chemistry panel is normal Day 2 of Levaquin and cefepime Patient is currently receiving IV fluids at 150/h Blood cultures are pending - Time Time Spent with patient: 25-34 minutes
[2019-04-26] MEDS: PROMETHAZINE HCL INJ 25 MG/1 ML VIAL IV PRN (18:36)
[2019-04-27] MEDS: OXYCODONE-ACETAMINOPHEN 5-325 MG TABLET PO PRN ×4 (03:58→18:09)
[2019-04-27] MEDS: NORMAL SALINE 1000 ML 1,000 ML IV PRN ×3 (03:59→13:37)
[2019-04-27] MEDS: CEFEPIME 1 GM/D5W RTU 1 GM/50 ML RTUPB IV SCH ×2 (06:10→17:04)
[2019-04-27] MEDS: POTASSI CL 20 MEQ/50 ML RIDER 20 MEQ/50 ML RTUPB IV SCH ×2 (08:06→10:37)
[2019-04-27] MEDS: FAMOTIDINE 20 MG TABLET PO SCH ×2 (09:43→21:18)
[2019-04-27] MEDS: DOCUSATE SODIUM 100 MG CAPSULE PO SCH (09:44)
[2019-04-27] MEDS: ENOXAPARIN SODIUM INJ 40 MG/0.4 ML DISP.SYRIN SUBCUT SCH (09:44)
[2019-04-27] MEDS: LEVALBUTEROL HCL NEB 1.25 MG/3 ML AMPUL NEB PRN ×3 (10:21→19:58)
--- NOTE | 2019-04-27 10:45 | PDOC PROGRESS REPORT ---
Subjective Progress Note for:: 04/27/19 Reason For Visit: PNEUMONIA,HYPOXIA,TACHYCARDIA,IRRITABLE BOWEL 04/27/2019 Pneumonia, hypoxia, tachycardia, irritable bowel syndrome Physical Exam Vital Signs: Temp Pulse Resp BP Pulse Ox 99.2 F 104 H 16 115/61 96 04/27/19 07:51 04/27/19 10:22 04/27/19 10:22 04/27/19 07:51 04/27/19 10:22 Intake & Output 04/26/19 04/27/19 04/28/19 06:59 06:59 06:59 Intake Total 4415 2851 718 Output Total 2 Balance 4413 2851 718 Weight 71.6 kg 73 kg General appearance: PRESENT: mild distress, other - Patient states when her pain medicine wears off it hurts to take a deep inspiration or expiration Respiratory exam: PRESENT: decreased breath sounds, other - No wheezes Cardiovascular exam: PRESENT: RRR. ABSENT: diastolic murmur, rubs, systolic murmur Neurological exam: PRESENT: alert, awake, oriented to person, oriented to place, oriented to time, oriented to situation, CN II-XII grossly intact. ABSENT: motor sensory deficit Psychiatric exam: PRESENT: flat affect Results Laboratory Results: 04/26/19 05:01 04/26/19 05:01 04/25/19 13:40 Troponin I < 0.012 Impressions: Chest X-Ray 04/25/19 13:02 IMPRESSION: Asymmetric opacities in the right lower lobe. Correlate with clin ical findings to exclude a right lower lobe pneumonia. Chest/Abdomen CTA 04/26/19 00:00 IMPRESSION: No CT angio evidence of acute pulmonary emboli or thoracic aortic dissection Dense consolidation in the bilateral lower lobes worrisome for pneumonia. Minimal patchy right middle lobe airspace disease Assessment and Plan - Diagnosis (1) Tachycardia Is this a current diagnosis for this admission?: Yes (2) Hypoxia Is this a current diagnosis for this admission?: Yes (3) Pneumonia Qualifiers: Pneumonia type: due to unspecified organism Laterality: right Lung location: unspecified part of lung Qualified Code(s): J18.9 - Pneumonia, unspecified organism Is this a current diagnosis for this admission?: Yes - Plan Summary Summary: Will put patient in the hospital for IV fluids, hydration, IV antibiotics.. I have ordered a flu swab in the emergency room as well as a d-dimer. Also patient will get IV pain medication. I think patient's tachycardia will come down when she gets more fluids as well as IV pain medicine. She has had 3 days of diarrhea secondary to the Zithromax. I have explained all this to the patient and her mother who was is in the room 04/26/2019 Patient's fever has spiked up to 102.3 blood pressure still stable at 122/62 however patient is still tachycardic around 120-130 Oxygen saturation remains good however at 98% on [address] angiogram of the chest today showed no evidence of pulmonary embolism however it did show bilateral lower lobe pneumonia as well as a right middle lobe pneumonia White count is gone from 8.8 up to 13,000 Flu swab is negative Chemistry panel is normal Day 2 of Levaquin and cefepime Patient is currently receiving IV fluids at 150/h Blood cultures are pending 04/27/2019 Patient's temperature last night only went to 100.7 it is an improvement from the night before. Pulse also stable now at 100, no longer tachycardic. Blood pressure 111/70, O2 sat are being maintained on 2 L nasal cannula I am adding Toradol to her regimen for her chest wall pain. I called pharmacy and there was no contraindication concerning her sulfa allergy Patient feels as though she is making progress White count is still normal ,potassium slightly low and I will add K riders Continue IV Levaquin and cefepime Decrease IV fluids to 60/h - Time Time Spent with patient: 15-24 minutes
[2019-04-27] MEDS: KETOROLAC TROMETHAMINE INJ/PF 30 MG/1 ML SDV IV PRN ×2 (11:38→23:57)
[2019-04-27] MEDS: LEVOFLOXACIN 750 MG/D5W RTU 750 MG/150 ML RTUPB IV SCH (13:34)
[2019-04-27] MEDS: PROMETHAZINE HCL INJ 25 MG/1 ML VIAL IV PRN (17:59)
[2019-04-27] MEDS ORDERED: NORMAL SALINE 500 ML IV PRN (19:51)
[2019-04-27] MEDS: TEMAZEPAM 7.5 MG CAPSULE PO PRN (23:57)
[2019-04-28] MEDS: NORMAL SALINE 1000 ML 1,000 ML IV PRN ×2 (00:08→17:51)
[2019-04-28] MEDS: PROMETHAZINE HCL INJ 25 MG/1 ML VIAL IV PRN ×2 (00:11→14:27)
[2019-04-28] MEDS: CEFEPIME 1 GM/D5W RTU 1 GM/50 ML RTUPB IV SCH ×2 (05:41→17:51)
[2019-04-28] MEDS: OXYCODONE-ACETAMINOPHEN 5-325 MG TABLET PO PRN ×2 (05:45→12:39)
[2019-04-28] MEDS: LEVALBUTEROL HCL NEB 1.25 MG/3 ML AMPUL NEB PRN (08:27)
[2019-04-28 08:45] LABS: ABSOLUTE EOSINOPHILS # (AUTO) 0.1 10^3/uL (0.0-0.6); ABSOLUTE LYMPHOCYTES (AUTO) 0.9 10^3/uL (0.5-4.7); ABSOLUTE MONOCYTES (AUTO) 0.4 10^3/uL (0.1-1.4); ABSOLUTE NEUT (AUTO) 5.7 10^3/uL (1.7-8.2); BASOPHILS % (AUTO) 0.4 % (0-2); EOSINOPHILS % (AUTO) 1.2 % (0-6); HEMATOCRIT 28.9 % (36.0-47.0); HEMOGLOBIN 10.1 g/dL (12.0-15.5); LYMPHOCYTES % (AUTO) 12.7 % (13-45); MEAN CORPUSCULAR HEMOGLOBIN 29.5 pg (27.0-33.4); MEAN CORPUSCULAR HGB CONC 35.1 g/dL (32.0-36.0); MEAN CORPUSCULAR VOLUME 84 fl (80-97); MONOCYTES % (AUTO) 5.9 % (3-13); PLATELET COUNT 179 10^3/uL (150-450); RED BLOOD COUNT 3.44 10^6/uL (3.72-5.28); RED CELL DISTRIBUTION WIDTH 13.3 % (11.5-14.0); SEGMENTED NEUTROPHILS % (AUTO) 79.8 % (42-78); TOTAL CELLS COUNTED % (AUTO) 100 %; WHITE BLOOD COUNT 7.2 10^3/uL (4.0-10.5)
[2019-04-28 09:05] LABS: ANION GAP 7 (5-19); BLOOD UREA NITROGEN 7 mg/dL (7-20); CALCIUM 8.2 mg/dL (8.4-10.2); CARBON DIOXIDE 25 mmol/L (22-30); CHLORIDE 105 mmol/L (98-107); GLUCOSE 84 mg/dL (75-110)
[2019-04-28] MEDS: FAMOTIDINE 20 MG TABLET PO SCH ×2 (09:13→22:25)
[2019-04-28] MEDS: KETOROLAC TROMETHAMINE INJ/PF 30 MG/1 ML SDV IV PRN (09:14)
[2019-04-28] MEDS: DOCUSATE SODIUM 100 MG CAPSULE PO SCH (09:14)
--- NOTE | 2019-04-28 10:31 | PDOC PROGRESS REPORT ---
Subjective Progress Note for:: 04/28/19 Reason For Visit: PNEUMONIA,HYPOXIA,TACHYCARDIA,IRRITABLE BOWEL 04/28/2019 Pneumonia, hypoxia, tachycardia, irritable bowel syndrome Physical Exam Vital Signs: Temp Pulse Resp BP Pulse Ox 99.0 F 78 26 H 116/67 100 04/28/19 04:32 04/28/19 07:00 04/28/19 04:32 04/28/19 04:32 04/28/19 04:32 Intake & Output 04/27/19 04/28/19 04/29/19 06:59 06:59 06:59 Intake Total 2851 3784 Output Total 0 Balance 2851 3784 Weight 73 kg 74.3 kg General appearance: PRESENT: mild distress Respiratory exam: PRESENT: decreased breath sounds, other Cardiovascular exam: PRESENT: RRR. ABSENT: diastolic murmur, rubs, systolic murmur Neurological exam: PRESENT: alert, awake, oriented to person, oriented to place, oriented to time, oriented to situation, CN II-XII grossly intact. ABSENT: motor sensory deficit Psychiatric exam: PRESENT: flat affect Results Laboratory Results: 04/28/19 08:13 04/28/19 08:13 04/28/19 04/28/19 08:13 08:13 WBC 7.2 RBC 3.44 L Hgb 10.1 L Hct 28.9 L MCV 84 MCH 29.5 MCHC 35.1 RDW 13.3 Plt Count 179 Seg Neutrophils % 79.8 H Sodium 136.6 L Potassium 4.0 Chloride 105 Carbon Dioxide 25 Anion Gap 7 BUN 7 Creatinine 0.47 L Est GFR ( Amer) > 60 Glucose 84 Calcium 8.2 L 04/25/19 13:05 Clean Catch Midstream Urine Culture - Final NO GROWTH 2 DAYS 04/25/19 13:40 Troponin I < 0.012 Impressions: Chest X-Ray 04/25/19 13:02 IMPRESSION: Asymmetric opacities in the right lower lobe. Correlate with clinical findings to exclude a right lower lobe pneumonia. Chest/Abdomen CTA 04/26/19 00:00 IMPRESSION: No CT angio evidence of acute pulmonary emboli or thoracic aortic dissection Dense consolidation in the bilateral lower lobes worrisome for pneumonia. Minimal patchy right middle lobe airspace disease Assessment and Plan - Diagnosis (1) Tachycardia Is this a current diagnosis for this admission?: Yes (2) Hypoxia Is this a current diagnosis for this admission?: Yes (3) Pneumonia Qualifiers: Pneumonia type: due to unspecified organism Laterality: right Lung location: unspecified part of lung Qualified Code(s): J18.9 - Pneumonia, unspecified organism Is this a current diagnosis for this admission?: Yes - Plan Summary Summary: Will put patient in the hospital for IV fluids, hydration, IV antibiotics.. I have ordered a flu swab in the emergency room as well as a d-dimer. Also patient will get IV pain medication. I think patient's tachycardia will come down when she gets more fluids as well as IV pain medicine. She has had 3 days of diarrhea secondary to the Zithromax. I have explained all this to the patient and her mother who was is in the room 04/26/2019 Patient's fever has spiked up to 102.3 blood pressure still stable at 122/62 however patient is still tachycardic around 120-130 Oxygen saturation remains good however at 98% on [address] angiogram of the chest today showed no evidence of pulmonary embolism however it did show bilateral lower lobe pneumonia as well as a right middle lobe pneumonia White count is gone from 8.8 up to 13,000 Flu swab is negative Chemistry panel is normal Day 2 of Levaquin and cefepime Patient is currently receiving IV fluids at 150/h Blood cultures are pending 04/27/2019 Patient's temperature last night only went to 100.7 it is an improvement from the night before. Pulse also stable now at 100, no longer tachycardic. Blood pressure 111/70, O2 sat are being maintained on 2 L nasal cannula I am adding Toradol to her regimen for her chest wall pain. I called pharmacy and there was no contraindication concerning her sulfa allergy Patient feels as though she is making progress White count is still normal ,potassium slightly low and I will add K riders Continue IV Levaquin and cefepime Decrease IV fluids to 60/h 04/28/2019 Temperature 99. Last fever was 102.3 at 1119 on 04/26/2019 Blood pressure stable at 116/67 O2 sat is 100% on 1-1/2 L of nasal cannula Loud cultures are negative x48 hours White blood cell count is down to 7.2 from 13 Chemistry is stable although BUN is up slightly to 7 and creatinine is up slightly to 0.47 calcium is normal 8.2. Potassium today is up to 4.0 Continue IV antibiotics. Continue trying to get patient up out of bed walking more to build up her endurance. I have discussed all this with patient and family - Time Time Spent with patient: 25-34 minutes
[2019-04-28] MEDS: ENOXAPARIN SODIUM INJ 40 MG/0.4 ML DISP.SYRIN SUBCUT SCH (11:37)
[2019-04-28] MEDS ORDERED: DIPHENHYDRAMINE HCL 25 MG CAPSULE PO PRN (11:58)
[2019-04-28] MEDS: LEVOFLOXACIN 750 MG/D5W RTU 750 MG/150 ML RTUPB IV SCH (12:40)
[2019-04-28] MEDS ORDERED: MORPHINE SULFATE 10 MG/ML INJ ONE (13:41)
[2019-04-28] MEDS: GUAIFENESIN SYRP 200 MG/10 ML UDC PO PRN ×2 (14:18→22:25)
[2019-04-28 14:52] LABS: CREATINE KINASE MB < 0.22 ng/mL (<4.55); TROPONIN I < 0.012 ng/mL
--- NOTE | 2019-04-28 15:04 | RADIOLOGY REPORT (SQ) ---
EXAM DESCRIPTION: CT HEAD WITHOUT COMPLETED DATE/TIME: 04/28/2019 2:51 pm REASON FOR STUDY: severe headache COMPARISON: None. TECHNIQUE: Axial images acquired through the brain without intravenous contrast. Images reviewed wi th bone, brain and subdural windows. Images stored on PACS. All CT scanners at this facility use dose modulation, iterative reconstruction, and/or weight based d osing when appropriate to reduce radiation dose to as low as reasonably achievable (ALARA). [facility]: Dose Right [facility]: CareDose [facility]: Dose Right [facility]: Teradose 4D [facility]: [address] RADIATION DOSE: CT Rad equipment meets quality standard of care and radiation dose reduction techniq ues were employed. CTDIvol: 53.2 mGy. DLP: 991 mGy-cm. mGy. LIMITATIONS: None. FINDINGS: VENTRICLES: Normal size and contour. CEREBRUM: No mass effect. No hemorrhage. No midline shift. Normal moran/white matter differentiatio n. No evidence for acute territorial infarction. CEREBELLUM: No mass effect. No hemorrhage. No alteration of density. No evidence for acute infarct ion. EXTRAAXIAL SPACES: No fluid collections. ORBITS AND GLOBE: Symmetrical contour of the globes. CALVARIUM: No depressed skull fracture. PARANASAL SINUSES: No air-fluid level. SOFT TISSUES: No hematoma. IMPRESSION: NO ACUTE INTRACRANIAL IMAGING FINDINGS. EVIDENCE OF ACUTE STROKE: NO. COMMENT: Quality ID # [id number]: Final reports with documentation of one or more dose reduction techniques (e.g., Automated exposure control, adjustment of the mA and/or kV according to patient size, use of iterative reconstruction technique) TECHNICAL DOCUMENTATION: JOB ID: [id number]- All Rights Reserved Reading location - IP/workstation name: [email or web address]
[2019-04-28] MEDS ORDERED: MORPHINE SULFATE 10 MG/ML INJ IV PRN (16:39)
--- NOTE | 2019-04-28 21:19 | EKG REPORT ---
SEVERITY:- OTHERWISE NORMAL ECG - SINUS TACHYCARDIA : Confirmed by: Katherine Vasquez MD 28-Apr-2019 21:18:30
[2019-04-28] MEDS: TEMAZEPAM 7.5 MG CAPSULE PO PRN (22:27)
[2019-04-29] MEDS: OXYCODONE-ACETAMINOPHEN 5-325 MG TABLET PO PRN (03:44)
[2019-04-29] MEDS: CEFEPIME 1 GM/D5W RTU 1 GM/50 ML RTUPB IV SCH ×2 (06:17→18:51)
[2019-04-29] MEDS: LEVALBUTEROL HCL NEB 1.25 MG/3 ML AMPUL NEB PRN ×2 (08:14→22:18)
[2019-04-29] MEDS: BUTALB/ACETAMINOPHEN/CAFFEINE 1 TAB EACH PO PRN ×2 (08:43→13:19)
[2019-04-29] MEDS: GUAIFENESIN SYRP 200 MG/10 ML UDC PO PRN ×2 (08:44→22:38)
[2019-04-29] MEDS: DOCUSATE SODIUM 100 MG CAPSULE PO SCH (10:38)
[2019-04-29] MEDS: FAMOTIDINE 20 MG TABLET PO SCH ×2 (10:38→22:15)
--- NOTE | 2019-04-29 11:50 | PDOC PROGRESS REPORT ---
Subjective Progress Note for:: 04/29/19 Reason For Visit: PNEUMONIA,HYPOXIA,TACHYCARDIA,IRRITABLE BOWEL 04/29/2019 She was originally admitted for pneumonia, however since admission she has had multiple complaints involving migraines, chest wall pain, what appears to be clinical depression Physical Exam Vital Signs: Temp Pulse Resp BP Pulse Ox 99.0 F 85 16 123/66 94 04/29/19 04:25 04/29/19 08:15 04/29/19 08:15 04/29/19 04:25 04/29/19 08:15 Intake & Output 04/28/19 04/29/19 04/30/19 06:59 06:59 06:59 Intake Total 3784 2760 50 Output Total 0 Balance 3784 2760 50 Weight 74.3 kg 74.4 kg General appearance: PRESENT: no acute distress Respiratory exam: PRESENT: clear to auscultation tashia, decreased breath sounds, other - Decreased breath sounds due to poor inspiratory and expiratory effort. ABSENT: rales, rhonchi, wheezes Cardiovascular exam: PRESENT: RRR. ABSENT: diastolic murmur, rubs, systolic murmur Neurological exam: PRESENT: alert, awake, oriented to person, oriented to place, oriented to time, oriented to situation, CN II-XII grossly intact. ABSENT: motor sensory deficit Psychiatric exam: PRESENT: depressed, flat affect, unusual affect. ABSENT: homicidal ideation, suicidal ideation Results Laboratory Results: 04/28/19 08:13 04/28/19 08:13 04/29/19 09:06 C-Reactive Protein 161.0 H 04/25/19 04/28/19 04/28/19 13:40 14:10 14:10 Creatine Kinase 24 L CK-MB (CK-2) < 0.22 Troponin I < 0.012 < 0.012 Impressions: Chest X-Ray 04/25/19 13:02 IMPRESSION: Asymmetric opacities in the right lower lobe. Correlate with clinical findings to exclude a right lower lobe pneumonia. Chest/Abdomen CTA 04/26/19 00:00 IMPRESSION: No CT angio evidence of acute pulmonary emboli or thoracic aortic dissection Dense consolidation in the bilateral lower lobes worrisome for pneumonia. Minimal patchy right middle lobe airspace disease Head CT 04/28/19 00:00 IMPRESSION: NO ACUTE INTRACRANIAL IMAGING FINDINGS. EVIDENCE OF ACUTE STROKE: NO. Assessment and Plan - Diagnosis (1) Tachycardia Is this a current diagnosis for this admission?: Yes (2) Hypoxia Is this a current diagnosis for this admission?: Yes (3) Pneumonia Qualifiers: Pneumonia type: due to unspecified organism Laterality: right Lung location: unspecified part of lung Qualified Code(s): J18.9 - Pneumonia, unspecified organism Is this a current diagnosis for this admission?: Yes (5) Migraines Is this a current diagnosis for this admission?: Yes (6) Irritable bowel syndrome Is this a current diagnosis for this admission?: Yes - Plan Summary Summary: Will put patient in the hospital for IV fluids, hydration, IV antibiotics.. I have ordered a flu swab in the emergency room as well as a d-dimer. Also patient will get IV pain medication. I think patient's tachycardia will come down when she gets more fluids as well as IV pain medicine. She has had 3 days of diarrhea secondary to the Zithromax. I have explained all this to the patient and her mother who was is in the room 04/26/2019 Patient's fever has spiked up to 102.3 blood pressure still stable at 122/62 however patient is still tachycardic around 120-130 Oxygen saturation remains good however at 98% on [address] angiogram of the chest today showed no evidence of pulmonary embolism however it did show bilateral lower lobe pneumonia as well as a right middle lobe pneumonia White count is gone from 8.8 up to 13,000 Flu swab is negative Chemistry panel is normal Day 2 of Levaquin and cefepime Patient is currently receiving IV fluids at 150/h Blood cultures are pending 04/27/2019 Patient's temperature last night only went to 100.7 it is an improvement from the night before. Pulse also stable now at 100, no longer tachycardic. Blood pressure 111/70, O2 sat are being maintained on 2 L nasal cannula I am adding Toradol to her regimen for her chest wall pain. I called pharmacy and there was no contraindication concerning her sulfa allergy Patient feels as though she is making progress White count is still normal ,potassium slightly low and I will add K riders Continue IV Levaquin and cefepime Decrease IV fluids to 60/h 04/28/2019 Temperature 99. Last fever was 102.3 at 1119 on 04/26/2019 Blood pressure stable at 116/67 O2 sat is 100% on 1-1/2 L of nasal cannula Loud cultures are negative x48 hours White blood cell count is down to 7.2 from 13 Chemistry is stable although BUN is up slightly to 7 and creatinine is up s lightly to 0.47 calcium is normal 8.2. Potassium today is up to 4.0 Continue IV antibiotics. Continue trying to get patient up out of bed walking more to build up her endurance. I have discussed all this with patient and family 04/29/2019 Vital signs are actually stable, she has not had a fever now for over 72 hours Pulse is between 80 and 90 and blood pressure is 123/66 She tells me that she has about 5 migraines per week and takes Goody powders 2-3 times every day. Also seems to be fixated on her tremors that she has had for 3 years and was seen by neurology for 3 years ago with an MRI scan, no cause was found by that neurologist Patient also appears to be weak in the bed shows very little initiative to get up out of bed. Her white count remains normal 7.2 hemoGlobin has drifted down a bit to 10.1, platelets are still adequate at 179,000 Sed rate today is 78 CRP is elevated to 161 Blood culture showed no growth in 72 hours Urine culture was negative in 48 hours Ordered repeat flu swab as this really continues to look more like a viral syndrome to me. MRI and MRA of the brain tomorrow 2 view of the chest x-ray has been ordered for today She had another headache last night that seem to be migraine was treated with good results with plain Fioricet. Patient was given morphine and she did not like the way it made her feel that that was the second time some morphine has been discontinued - Time Time Spent with patient: 25-34 minutes
[2019-04-29] MEDS: LEVOFLOXACIN 750 MG/D5W RTU 750 MG/150 ML RTUPB IV SCH (13:19)
[2019-04-29] MEDS: NORMAL SALINE 1000 ML 1,000 ML IV PRN (13:20)
[2019-04-29] MEDS: PROMETHAZINE HCL INJ 25 MG/1 ML VIAL IV PRN (15:32)
[2019-04-29 18:07] LABS: A TYPE INFLUENZA AG NEGATIVE (NEGATIVE); B INFLUENZA AG NEGATIVE (NEGATIVE)
[2019-04-29] MEDS: TEMAZEPAM 7.5 MG CAPSULE PO PRN (22:38)
[2019-04-30] MEDS: CEFEPIME 1 GM/D5W RTU 1 GM/50 ML RTUPB IV SCH ×2 (05:46→17:46)
[2019-04-30] MEDS: BUTALB/ACETAMINOPHEN/CAFFEINE 1 TAB EACH PO PRN (06:54)
[2019-04-30] MEDS: LEVALBUTEROL HCL NEB 1.25 MG/3 ML AMPUL NEB PRN ×3 (08:15→21:06)
--- NOTE | 2019-04-30 08:33 | RADIOLOGY REPORT (SQ) ---
EXAM DESCRIPTION: CHEST 2 VIEWS COMPLETED DATE/TIME: 04/29/2019 6:45 pm REASON FOR STUDY: Pneumonia COMPARISON: PA and lateral views of the chest from 04/25/2019 EXAM PARAMETERS: NUMBER OF VIEWS: Two views. TECHNIQUE: PA and lateral views of the chest were obtained.. RADIATION DOSE: NA LIMITATIONS: none FINDINGS: LUNGS AND PLEURA: Increased bibasilar pleural and parenchymal opacities that obscure the c ontour of the right hemidiaphragm and blunt the costophrenic sulci. There is no pneumothorax. MEDIASTINUM AND HILAR STRUCTURES: No mediastinal or hilar contour abnormality. HEART AND VASCULAR STRUCTURES: The cardiac silhouette and pulmonary vasculature are within normal gardner its. BONES: No acute findings. HARDWARE: None in the chest. OTHER: No other finding. IMPRESSION: Increased bibasilar pleural and parenchymal opacities that could represent a combination of pleural fluid, atelectasis and/or pneumonia. TECHNICAL DOCUMENTATION: JOB ID: [id number] 2011 [employer]- All Rights Reserved Reading location - IP/workstation name: [email or web address]
[2019-04-30] MEDS ORDERED: LORAZEPAM 0.5 MG TABLET PO PRN (09:03)
[2019-04-30] MEDS: FAMOTIDINE 20 MG TABLET PO SCH ×2 (09:05→21:47)
[2019-04-30] MEDS: DOCUSATE SODIUM 100 MG CAPSULE PO SCH (09:05)
[2019-04-30] MEDS: NORMAL SALINE 1000 ML 1,000 ML IV PRN (09:07)
--- NOTE | 2019-04-30 09:31 | PDOC PROGRESS REPORT ---
Subjective Progress Note for:: 04/30/19 Reason For Visit: PNEUMONIA,HYPOXIA,TACHYCARDIA,IRRITABLE BOWEL 04/30/2019 Pneumonia, weakness, tachycardia, irritable bowel syndrome, voluntary versus involuntary tremor Physical Exam Vital Signs: Temp Pulse Resp BP Pulse Ox 98.4 F 107 H 24 H 118/55 L 96 04/30/19 04:46 04/30/19 07:00 04/30/19 04:46 04/30/19 04:46 04/30/19 04:46 Intake & Output 04/29/19 04/30/19 05/01/19 06:59 06:59 06:59 Intake Total 2760 2741 192 Balance 2760 2741 192 Weight 74.4 kg General appearance: PRESENT: no acute distress, other - Sitting up in bed smiling states she feels much better today Respiratory exam: PRESENT: clear to auscultation tashia. ABSENT: rales, rhonchi, wheezes Cardiovascular exam: PRESENT: RRR. ABSENT: diastolic murmur, rubs, systolic murmur Neurological exam: PRESENT: alert, awake, oriented to person, oriented to place, oriented to time, oriented to situation, CN II-XII grossly intact. ABSENT: motor sensory deficit Psychiatric exam: PRESENT: appropriate affect, normal mood, other - First day that patient has been smiling and says she feels better since admission. ABSENT: homicidal ideation, suicidal ideation Results Laboratory Results: 04/28/19 08:13 04/28/19 08:13 04/29/19 09:06 C-Reactive Protein 161.0 H 04/25/19 04/28/19 04/28/19 13:40 14:10 14:10 Creatine Kinase 24 L CK-MB (CK-2) < 0.22 Troponin I < 0.012 < 0.012 Impressions: Chest/Abdomen CTA 04/26/19 00:00 IMPRESSION: No CT angio evidence of acute pulmonary emboli or thoracic aortic dissection Dense consolidation in the bilateral lower lobes worrisome for pneumonia. Minimal patchy right middle lobe airspace disease Head CT 04/28/19 00:00 IMPRESSION: NO ACUTE INTRACRANIAL IMAGING FINDINGS. EVIDENCE OF ACUTE STROKE: NO. Chest X-Ray 04/29/19 00:00 IMPRESSION: Increased bibasilar pleural and parenchymal opacities that could represent a combination of pleural fluid, atelectasis and/or pneumonia. Assessment and Plan - Diagnosis (1) Tachycardia Is this a current diagnosis for this admission?: Yes (2) Hypoxia Is this a current diagnosis for this admission?: Yes (3) Pneumonia Qualifiers: Pneumonia type: due to unspecified organism Laterality: right Lung location: unspecified part of lung Qualified Code(s): J18.9 - Pneumonia, unspecified organism Is this a current diagnosis for this admission?: Yes (5) Migraines Is this a current diagnosis for this admission?: Yes (6) Irritable bowel syndrome Is this a current diagnosis for this admission?: Yes - Plan Summary Summary: Will put patient in the hospital for IV fluids, hydration, IV antibiotics.. I have ordered a flu swab in the emergency room as well as a d-dimer. Also patient will get IV pain medication. I think patient's tachycardia will come down when she gets more fluids as well as IV pain medicine. She has had 3 days of diarrhea secondary to the Zithromax. I have explained all this to the patient and her mother who was is in the room 04/26/2019 Patient's fever has spiked up to 102.3 blood pressure still stable at 122/62 however patient is still tachycardic around 120-130 Oxygen saturation remains good however at 98% on [address] angiogram of the chest today showed no evidence of pulmonary embolism however it did show bilateral lower lobe pneumonia as well as a right middle lobe pneu monia White count is gone from 8.8 up to 13,000 Flu swab is negative Chemistry panel is normal Day 2 of Levaquin and cefepime Patient is currently receiving IV fluids at 150/h Blood cultures are pending 04/27/2019 Patient's temperature last night only went to 100.7 it is an improvement from the night before. Pulse also stable now at 100, no longer tachycardic. Blood pressure 111/70, O2 sat are being maintained on 2 L nasal cannula I am adding Toradol to her regimen for her chest wall pain. I called pharmacy and there was no contraindication concerning her sulfa allergy Patient feels as though she is making progress White count is still normal ,potassium slightly low and I will add K riders Continue IV Levaquin and cefepime Decrease IV fluids to 60/h 04/28/2019 Temperature 99. Last fever was 102.3 at 1119 on 04/26/2019 Blood pressure stable at 116/67 O2 sat is 100% on 1-1/2 L of nasal cannula Loud cultures are negative x48 hours White blood cell count is down to 7.2 from 13 Chemistry is stable although BUN is up slightly to 7 and creatinine is up slightly to 0.47 calcium is normal 8.2. Potassium today is up to 4.0 Continue IV antibiotics. Continue trying to get patient up out of bed walking more to build up her endurance. I have discussed all this with patient and family 04/29/2019 Vital signs are actually stable, she has not had a fever now for over 72 hours Pulse is between 80 and 90 and blood pressure is 123/66 She tells me that she has about 5 migraines per week and takes Goody powders 2-3 times every day. Also seems to be fixated on her tremors that she has had for 3 years and was seen by neurology for 3 years ago with an MRI scan, no cause was found by that neurologist Patient also appears to be weak in the bed shows very little initiative to get up out of bed. Her white count remains normal 7.2 hemoGlobin has drifted down a bit to 10.1, platelets are still adequate at 179,000 Sed rate today is 78 CRP is elevated to 161 Blood culture showed no growth in 72 hours Urine culture was negative in 48 hours Ordered repeat flu swab as this really continues to look more like a viral syndrome to me. MRI and MRA of the brain tomorrow 2 view of the chest x-ray has been ordered for today She had another headache last night that seem to be migraine was treated with good results with plain Fioricet. Patient was given morphine and she did not like the way it made her feel, that that was the second time she had some morphine , has been discontinued. Also I discontinued her Percocet and she is now only on plain Fioricet. 04/30/2019 Patient remains afebrile no temperature in 96 hours Patient is now on room air and maintaining her oxygen saturations between 96 and 99% I repeated patient's influenza swab and it was negative once again Patient continues to run a normal white count Patient's chemistry panel is normal RA latex was negative SLE prep is pending Chest x-ray from yesterday actually looks worse but clinically the patient looks better. Patient has been on cefepime and Levaquin since she was admitted. I am somewhat confused by the appearance of the chest x-ray unless it has to do with hydration, because today she looks to have "turned the corner". Also she is continuing to maintain normal oxygen saturations. Blood cultures are negative x 96 hours. Patient may need another CT scan of the chest prior to discharge. Ordering a MRI and MRA of the brain today because of her tremors her persistent "migraines". Patient needed a low-dose of Ativan due to claustrophobia. In summary this patient was admitted with pneumonia, generalized weakness, fever, a past medical history of frequent migraines and irritable bowel syndrome. Patient tells me she was having 5 migraines per week and taking Goody powders. She and her mother also told me that she just recently last week got fired from her job. And also tells me that she saw a neurologist 3 years ago for her tremors was diagnosed with PTSD even though she has no history of significant trauma of any type. I do feel that there are some psychosocial issues involved here, but clearly she also had pneumonia for at least a week to 10 days prior to being admitted. And she was actually on Zithromax for 2 days prior to being admitted. Continue the same course and then switch over to p.o. antibiotics. Avoid other analgesics except Fioricet. Definite repeat either chest x-ray or CT scan of the chest until resolution - Time Time Spent with patient: 25-34 minutes
[2019-04-30] MEDS: LEVOFLOXACIN 750 MG/D5W RTU 750 MG/150 ML RTUPB IV SCH (14:10)
--- NOTE | 2019-04-30 15:54 | RADIOLOGY REPORT (SQ) ---
EXAM DESCRIPTION: MRI HEAD WITHOUT COMPLETED DATE/TIME: 04/30/2019 2:53 pm REASON FOR STUDY: Altered mental status, tremor COMPARISON: None. TECHNIQUE: Multiplanar imaging includes non-contrasted T1, T2, FLAIR, and diffusion with ADC map seq uences. Images stored on PACS. LIMITATIONS: Motion. FINDINGS: ANATOMY: No anomalies. Normal vascular flow voids. Pituitary fossa normal. CSF SPACES: Normal in size and contour. No hemorrhage. CEREBRUM: Sulci and gyri normal in size and contour. Normal white matter signal on FLAIR imaging. No evidence of hemorrhage, mass, or extraaxial fluid collection. POSTERIOR FOSSA: No signal alteration. No hemorrhage. No edema, masses or mass effect. Internal katie tory canals, cerebello-pontine angles, mastoids normal. DIFFUSION IMAGING: Negative for acute or sub-acute infarction. ORBITS: No masses. Globes normal. PARANASAL SINUSES: No fluid levels. Mucosa normal. OTHER: No other significant finding. IMPRESSION: NORMAL MRI OF THE BRAIN WITHOUT INTRAVENOUS GADOLINIUM CONTRAST. EVIDENCE OF ACUTE STROKE: NO. TECHNICAL DOCUMENTATION: JOB ID: [id number] 2010 [employer]- All Rights Reserved Reading location - IP/workstation name: [email or web address]
--- NOTE | 2019-04-30 15:56 | RADIOLOGY REPORT (SQ) ---
EXAM DESCRIPTION: MRA HEAD WITHOUT COMPLETED DATE/TIME: 04/30/2019 2:53 pm REASON FOR STUDY: family hx avm and patient has tremors COMPARISON: None. TECHNIQUE: Axial 3-D [id number] acquisition imaging performed through the brain in the area of t he [place]. Images reformatted using 3-D MIPS. LIMITATIONS: None. FINDINGS: SOURCE IMAGES: No unexpected findings on source images. No large masses. 3-D MIP: No aneurysm. No occlusions. No significant stenosis. OTHER: No other significant finding. IMPRESSION: NORMAL MRA OF THE [place] OF [place]. TECHNICAL DOCUMENTATION: JOB ID: [id number] 2010 [employer]- All Rights Reserved Reading location - IP/workstation name: [email or web address]
[2019-04-30] MEDS: TEMAZEPAM 7.5 MG CAPSULE PO PRN (21:47)
[2019-04-30] MEDS: GUAIFENESIN SYRP 200 MG/10 ML UDC PO PRN (21:47)
[2019-05-01] MEDS: BUTALB/ACETAMINOPHEN/CAFFEINE 1 TAB EACH PO PRN ×2 (00:12→08:34)
[2019-05-01] MEDS: NORMAL SALINE 1000 ML 1,000 ML IV PRN (03:52)
[2019-05-01] MEDS: CEFEPIME 1 GM/D5W RTU 1 GM/50 ML RTUPB IV SCH ×2 (05:17→18:04)
[2019-05-01] MEDS: LEVALBUTEROL HCL NEB 1.25 MG/3 ML AMPUL NEB PRN ×2 (07:46→16:52)
[2019-05-01] MEDS ORDERED: PROPRANOLOL HCL 40 MG TABLET PO ONE (09:46)
[2019-05-01] MEDS ORDERED: CARBOXYMETHYLCELLULOSE SOD 0.5% 0.4 ML DROPERETTE OU PRN (09:51)
[2019-05-01] MEDS ORDERED: PROPRANOLOL HCL 40 MG TABLET PO SCH (10:00)
[2019-05-01] MEDS: PROPRANOLOL HCL 20 MG TABLET PO SCH ×2 (10:13→22:00)
[2019-05-01] MEDS: DOCUSATE SODIUM 100 MG CAPSULE PO SCH (10:13)
[2019-05-01] MEDS: FAMOTIDINE 20 MG TABLET PO SCH ×2 (10:13→22:00)
[2019-05-01] MEDS: LEVOFLOXACIN 750 MG/D5W RTU 750 MG/150 ML RTUPB IV SCH (11:55)
--- NOTE | 2019-05-01 15:53 | PDOC PROGRESS REPORT ---
Subjective Progress Note for:: 05/01/19 Subjective:: GLENDA CALLEJAS is a 39 year old female who states that since last Tuesday or 6 days ago she started feeling bad. Darted off with feeling tired fever and chills and a light cough she said in a couple days that seem to get better but then by Tuesday the cough is getting worse. It is mostly nonproductive. He went to an urgent care 2 days ago on Tuesday she said they thought her she had an upper respiratory illness and put her on a Z-Nick. No flu swab no chest x-ray was performed. States today she started feeling worse with a "hurting to breathe", shortness of breath and just feeling more tired. Patient states she has had no chest pain per se but she does have chest wall pain with deep inspiration and expiration. No nausea no vomiting. Patient does not smoke. 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 Etiology is unknown, patient says she has had an MRI scan of the brain which was normal. Reason For Visit: PNEUMONIA,HYPOXIA,TACHYCARDIA,IRRITABLE BOWEL Physical Exam Vital Signs: Temp Pulse Resp BP Pulse Ox 97.9 F 81 16 122/73 99 05/01/19 12:01 05/01/19 14:00 05/01/19 12:01 05/01/19 12:01 05/01/19 12:01 Intake & Output 04/30/19 05/01/19 05/02/19 06:59 06:59 06:59 Intake Total 3041 3100 420 Balance 3041 3100 420 Weight 73.4 kg 73.4 kg General appearance: PRESENT: no acute distress, well-developed, well-nourished Head exam: PRESENT: atraumatic, normocephalic Respiratory exam: PRESENT: crackles - Bibasilar crackles. ABSENT: rales, rhonchi, wheezes Cardiovascular exam: PRESENT: RRR. ABSENT: diastolic murmur, rubs, systolic murmur GI/Abdominal exam: PRESENT: normal bowel sounds, soft. ABSENT: distended, guarding, mass, organolmegaly, rebound, tenderness Neurological exam: PRESENT: alert, awake, oriented to person, oriented to place, oriented to time, oriented to situation, CN II-XII grossly intact, other - Right upper extremity intention high-frequency high amplitude tremor.. ABSENT: motor sensory deficit Psychiatric exam: PRESENT: anxious Results Laboratory Results: 04/28/19 08:13 04/28/19 08:13 04/25/19 18:24 Blood Blood Culture - Final NO GROWTH IN 5 DAYS 04/25/19 15:53 Blood Blood Culture - Final NO GROWTH IN 5 DAYS 04/25/19 04/28/19 04/28/19 13:40 14:10 14:10 Creatine Kinase 24 L CK-MB (CK-2) < 0.22 Troponin I < 0.012 < 0.012 Impressions: Chest/Abdomen CTA 04/26/19 00:00 IMPRESSION: No CT angio evidence of acute pulmonary emboli or thoracic aortic dissection Dense consolidation in the bilateral lower lobes worrisome for pneumonia. Minimal patchy right middle lobe airspace disease Head CT 04/28/19 00:00 IMPRESSION: NO ACUTE INTRACRANIAL IMAGING FINDINGS. EVIDENCE OF ACUTE STROKE: NO. Chest X-Ray 04/29/19 00:00 IMPRESSION: Increased bibasilar pleural and parenchymal opacities that could represent a combination of pleural fluid, atelectasis and/or pneumonia. Brain MRI with MRA 04/30/19 08:00 IMPRESSION: NORMAL MRA OF THE [place]. Head MRI 04/30/19 08:00 IMPRESSION: NORMAL MRI OF THE BRAIN WITHOUT INTRAVENOUS GADOLINIUM CONTRAST. EVIDENCE OF ACUTE STROKE: NO. Assessment and Plan - Diagnosis (1) Pneumonia Qualifiers: Pneumonia type: due to unspecified organism Laterality: bilateral Lung location: unspecified part of lung Qualified Code(s): J18.9 - Pneumonia, unspecified organism Is this a current diagnosis for this admission?: Yes Plan: Improving. SPO2 WNL on RA. Still having persistent nonproductive cough. Likely community-acquired due to gram-positive cocci including Streptococcus pneumonia. Influenza type a and one negative on admission. Cultures negative so far. Day 6 of IV antibiotics. Day 6 IV cefepime. DC IV levofloxacin. DC IV vancomycin. (2) Sinus tachycardia Is this a current diagnosis for this admission?: Yes Plan: Resolved. Likely due to acute illness as well as anxiety. EKG on admission sinus tachycardia. CTA negative for PE. Continue PRN beta-blockers. (3) Intention tremor Is this a current diagnosis for this admission?: Yes Plan: Right upper extremity high amplitude high-frequency intention tremor. Has been evaluated in the past by neurology attributed to PTSD. PT denies any traumatic event in her life. MRI/MRA head negative for any acute abnormalities. We will start on propranolol, uptitrate as tolerated. This will help her with intention tremor as well as prophylaxis for migraine headaches and sinus tachycardia. If no improvement on propranolol will try gabapentin. (4) Migraines Qualifiers: Migraine type: without aura Is this a current diagnosis for this admission?: Yes Plan: Chronic migraine headaches. Denies any focal neurologic symptoms. Treated by Fioricet as needed. MRI/MRA head negative for any acute abnormalities. We will start on propranolol, uptitrate as tolerated. This will help her with intention tremor as well as prophylaxis for migraine headaches and sinus tachycardia. Avoid Fioricet due to its high caffeine content status may increase her anxiety, tachycardia and tremors. (5) Irritable bowel syndrome Qualifiers: Irritable bowel syndrome type: with both diarrhea and constipation Qualified Code(s): K58.2 - Mixed irritable bowel syndrome Is this a current diagnosis for this admission?: Yes Plan: Continue supportive measures. Outpatient PCP and gastroenterology follow-up. - Plan Summary Summary: Will put patient in the hospital for IV fluids, hydration, IV antibiotics.. I have ordered a flu swab in the emergency room as well as a d-dimer. Also p atient will get IV pain medication. I think patient's tachycardia will come down when she gets more fluids as well as IV pain medicine. She has had 3 days of diarrhea secondary to the Zithromax. I have explained all this to the patient and her mother who was is in the room 04/26/2019 Patient's fever has spiked up to 102.3 blood pressure still stable at 122/62 however patient is still tachycardic around 120-130 Oxygen saturation remains good however at 98% on [address] angiogram of the chest today showed no evidence of pulmonary embolism however it did show bilateral lower lobe pneumonia as well as a right middle lobe pneumonia White count is gone from 8.8 up to 13,000 Flu swab is negative Chemistry panel is normal Day 2 of Levaquin and cefepime Patient is currently receiving IV fluids at 150/h Blood cultures are pending 04/27/2019 Patient's temperature last night only went to 100.7 it is an improvement from the night before. Pulse also stable now at 100, no longer tachycardic. Blood pressure 111/70, O2 sat are being maintained on 2 L nasal cannula I am adding Toradol to her regimen for her chest wall pain. I called pharmacy and there was no contraindication concerning her sulfa allergy Patient feels as though she is making progress White count is still normal ,potassium slightly low and I will add K riders Continue IV Levaquin and cefepime Decrease IV fluids to 60/h 04/28/2019 Temperature 99. Last fever was 102.3 at 1119 on 04/26/2019 Blood pressure stable at 116/67 O2 sat is 100% on 1-1/2 L of nasal cannula Loud cultures are negative x48 hours White blood cell count is down to 7.2 from 13 Chemistry is stable although BUN is up slightly to 7 and creatinine is up slightly to 0.47 calcium is normal 8.2. Potassium today is up to 4.0 Continue IV antibiotics. Continue trying to get patient up out of bed walking more to build up her endurance. I have discussed all this with patient and family 04/29/2019 Vital signs are actually stable, she has not had a fever now for over 72 hours Pulse is between 80 and 90 and blood pressure is 123/66 She tells me that she has about 5 migraines per week and takes Goody powders 2-3 times every day. Also seems to be fixated on her tremors that she has had for 3 years and was seen by neurology for 3 years ago with an MRI scan, no cause was found by that neurologist Patient also appears to be weak in the bed shows very little initiative to get up out of bed. Her white count remains normal 7.2 hemoGlobin has drifted down a bit to 10.1, platelets are still adequate at 179,000 Sed rate today is 78 CRP is elevated to 161 Blood culture showed no growth in 72 hours Urine culture was negative in 48 hours Ordered repeat flu swab as this really continues to look more like a viral syndrome to me. MRI and MRA of the brain tomorrow 2 view of the chest x-ray has been ordered for today She had another headache last night that seem to be migraine was treated with good results with plain Fioricet. Patient was given morphine and she did not like the way it made her feel, that that was the second time she had some m orphine , has been discontinued. Also I discontinued her Percocet and she is now only on plain Fioricet. 04/30/2019 Patient remains afebrile no temperature in 96 hours Patient is now on room air and maintaining her oxygen saturations between 96 and 99% I repeated patient's influenza swab and it was negative once again Patient continues to run a normal white count Patient's chemistry panel is normal RA latex was negative SLE prep is pending Chest x-ray from yesterday actually looks worse but clinically the patient looks better. Patient has been on cefepime and Levaquin since she was admitted. I am somewhat confused by the appearance of the chest x-ray unless it has to do with hydration, because today she looks to have "turned the corner". Also she is continuing to maintain normal oxygen saturations. Blood cultures are negative x 96 hours. Patient may need another CT scan of the chest prior to discharge. Ordering a MRI and MRA of the brain today because of her tremors her persistent "migraines". Patient needed a low-dose of Ativan due to claustrophobia. In summary this patient was admitted with pneumonia, generalized weakness, fever, a past medical history of frequent migraines and irritable bowel syndrome. Patient tells me she was having 5 migraines per week and taking Goody powders. She and her mother also told me that she just recently last week got fired from her job. And also tells me that she saw a neurologist 3 years ago for her tremors was diagnosed with PTSD even though she has no history of significant trauma of any type. I do feel that there are some psychosocial issues involved here, but clearly she also had pneumonia for at least a week to 10 days prior to being admitted. And she was actually on Zithromax for 2 days prior to being admitted. Continue the same course and then switch over to p.o. antibiotics. Avoid other analgesics except Fioricet. Definite repeat either chest x-ray or CT scan of the chest until resolution
[2019-05-01] MEDS: TEMAZEPAM 7.5 MG CAPSULE PO PRN (22:00)
[2019-05-01] MEDS: GUAIFENESIN SYRP 200 MG/10 ML UDC PO PRN (22:00)
[2019-05-02] MEDS: CEFEPIME 1 GM/D5W RTU 1 GM/50 ML RTUPB IV SCH ×2 (06:48→18:24)
[2019-05-02] MEDS: LEVALBUTEROL HCL NEB 1.25 MG/3 ML AMPUL NEB PRN ×2 (08:11→17:46)
[2019-05-02] MEDS ORDERED: GABAPENTIN 300 MG CAPSULE PO ONE (09:30)
[2019-05-02] MEDS: FAMOTIDINE 20 MG TABLET PO SCH ×2 (09:45→22:20)
--- NOTE | 2019-05-02 09:51 | PDOC PROGRESS REPORT ---
Subjective Progress Note for:: 05/02/19 Subjective:: GLENDA CALLEJAS is a 39 year old female who states that since last Tuesday or 6 days ago she started feeling bad. Darted off with feeling tired fever and chills and a light cough she said in a couple days that seem to get better but then by Tuesday the cough is getting worse. It is mostly nonproductive. He went to an urgent care 2 days ago on Tuesday she said they thought her she had an upper respiratory illness and put her on a Z-Nick. No flu swab no chest x-ray was performed. States today she started feeling worse with a "hurting to breathe", shortness of breath and just feeling more tired. Patient states she has had no chest pain per se but she does have chest wall pain with deep inspiration and expiration. No nausea no vomiting. Patient does not smoke. 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 Etiology is unknown, patient says she has had an MRI scan of the brain which was normal. 05/02/2019. No acute events overnight. Still complaining of persistent migraine headaches improving compared to yesterday, left upper extremity tremors mild improvement with propranolol, still complaining of persistent cough and pleuritic chest pain. Reason For Visit: PNEUMONIA,HYPOXIA,TACHYCARDIA,IRRITABLE BOWEL Physical Exam Vital Signs: Temp Pulse Resp BP Pulse Ox 98.0 F 88 18 107/59 L 94 05/02/19 07:23 05/02/19 08:11 05/02/19 08:11 05/02/19 07:23 05/02/19 08:11 Intake & Output 05/01/19 05/02/19 05/03/19 06:59 06:59 06:59 Intake Total 3100 1270 50 Balance 3100 1270 50 Weight 73.4 kg 74 kg General appearance: PRESENT: no acute distress, well-developed, well-nourished Head exam: PRESENT: atraumatic, normocephalic Respiratory exam: PRESENT: clear to auscultation tashia. ABSENT: rales, rhonchi, wheezes Cardiovascular exam: PRESENT: RRR. ABSENT: diastolic murmur, rubs, systolic murmur GI/Abdominal exam: PRESENT: normal bowel sounds, soft. ABSENT: distended, guarding, mass, organolmegaly, rebound, tenderness Neurological exam: PRESENT: alert, awake, oriented to person, oriented to place, oriented to time, oriented to situation, CN II-XII grossly intact, other - Right upper extremity intention high amplitude high-frequency tremor.. ABSENT: motor sensory deficit Results Laboratory Results: 04/28/19 08:13 04/28/19 08:13 04/25/19 04/28/19 04/28/19 13:40 14:10 14:10 Creatine Kinase 24 L CK-MB (CK-2) < 0.22 Troponin I < 0.012 < 0.012 Impressions: Chest/Abdomen CTA 04/26/19 00:00 IMPRESSION: No CT angio evidence of acute pulmonary emboli or thoracic aortic dissection Dense consolidation in the bilateral lower lobes worrisome for pneumonia. Minimal patchy right middle lobe airspace disease Head CT 04/28/19 00:00 IMPRESSION: NO ACUTE INTRACRANIAL IMAGING FINDINGS. EVIDENCE OF ACUTE STROKE: NO. Chest X-Ray 04/29/19 00:00 IMPRESSION: Increased bibasilar pleural and parenchymal opacities that could represent a combination of pleural fluid, atelectasis and/or pneumonia. Brain MRI with MRA 04/30/19 08:00 IMPRESSION: NORMAL MRA OF THE [place] OF [place]. Head MRI 04/30/19 08:00 IMPRESSION: NORMAL MRI OF THE BRAIN WITHOUT INTRAVENOUS GADOLINIUM CONTRAST. EVIDENCE OF ACUTE STROKE: NO. Assessment and Plan - Diagnosis (1) Pneumonia Qualifiers: Pneumonia type: due to unspecified organism Laterality: bilateral Lung location: unspecified part of lung Qualified Code(s): J18.9 - Pneumonia, unspecified organism Is this a current diagnosis for this admission?: Yes Plan: Improving. SPO2 WNL on RA. Still having persistent nonproductive cough. Likely community-acquired due to gram-positive cocci including Streptococcus pneumonia. Influenza type a and one negative on admission. Cultures negative so far. Day 7 of IV antibiotics. Day 7 IV cefepime. DC IV levofloxacin. DC IV vancomycin. (2) Sinus tachycardia Is this a current diagnosis for this admission?: Yes Plan: Resolved. Likely due to acute illness as well as anxiety. EKG on admission sinus tachycardia. CTA negative for PE. Continue PRN beta-blockers. (3) Intention tremor Is this a current diagnosis for this admission?: Yes Plan: Mild improvement on p.o. propranolol. Right upper extremity high amplitude high-frequency intention tremor. Has been evaluated in the past by neurology attributed to PTSD. PT denies any traumatic event in her life. MRI/MRA head negative for any acute abnormalities. We will start on propranololThis will help her with intention tremor as well as prophylaxis for migraine headaches and sinus tachycardia. Increase propranolol to 40 mg p.o. 3 times daily. Add gabapentin. (4) Migraines Qualifiers: Migraine type: without aura Is this a current diagnosis for this admission?: Yes Plan: Chronic migraine headaches. Denies any focal neurologic symptoms. Treated with Fioricet as needed. MRI/MRA head negative for any acute abnormalities. We will start on propranolol, uptitrate as tolerated. This will help her with intention tremor as well as prophylaxis for migraine headaches and sinus tachycardia. Avoid Fioricet due to its high caffeine content status may increase her anxiety, tachycardia and tremors. (5) Irritable bowel syndrome Qualifiers: Irritable bowel syndrome type: with both diarrhea and constipation Qualified Code(s): K58.2 - Mixed irritable bowel syndrome Is this a current diagnosis for this admission?: Yes Plan: Continue supportive measures. Outpatient PCP and gastroenterology follow-up. - Plan Summary Summary: Will put patient in the hospital for IV fluids, hydration, IV antibiotics.. I have ordered a flu swab in the emergency room as well as a d-dimer. Also patient will get IV pain medication. I think patient's tachycardia will come do wn when she gets more fluids as well as IV pain medicine. She has had 3 days of diarrhea secondary to the Zithromax. I have explained all this to the patient and her mother who was is in the room 04/26/2019 Patient's fever has spiked up to 102.3 blood pressure still stable at 122/62 however patient is still tachycardic around 120-130 Oxygen saturation remains good however at 98% on [address] angiogram of the chest today showed no evidence of pulmonary embolism however it did show bilateral lower lobe pneumonia as well as a right middle lobe pneumonia White count is gone from 8.8 up to 13,000 Flu swab is negative Chemistry panel is normal Day 2 of Levaquin and cefepime Patient is currently receiving IV fluids at 150/h Blood cultures are pending 04/27/2019 Patient's temperature last night only went to 100.7 it is an improvement from the night before. Pulse also stable now at 100, no longer tachycardic. Blood pressure 111/70, O2 sat are being maintained on 2 L nasal cannula I am adding Toradol to her regimen for her chest wall pain. I called pharmacy and there was no contraindication concerning her sulfa allergy Patient feels as though she is making progress White count is still normal ,potassium slightly low and I will add K riders Continue IV Levaquin and cefepime Decrease IV fluids to 60/h 04/28/2019 Temperature 99. Last fever was 102.3 at 1119 on 04/26/2019 Blood pressure stable at 116/67 O2 sat is 100% on 1-1/2 L of nasal cannula Loud cultures are negative x48 hours White blood cell count is down to 7.2 from 13 Chemistry is stable although BUN is up slightly to 7 and creatinine is up slightly to 0.47 calcium is normal 8.2. Potassium today is up to 4.0 Continue IV antibiotics. Continue trying to get patient up out of bed walking more to build up her endurance. I have discussed all this with patient and family 04/29/2019 Vital signs are actually stable, she has not had a fever now for over 72 hours Pulse is between 80 and 90 and blood pressure is 123/66 She tells me that she has about 5 migraines per week and takes Goody powders 2-3 times every day. Also seems to be fixated on her tremors that she has had for 3 years and was seen by neurology for 3 years ago with an MRI scan, no cause was found by that neurologist Patient also appears to be weak in the bed shows very little initiative to get up out of bed. Her white count remains normal 7.2 hemoGlobin has drifted down a bit to 10.1, platelets are still adequate at 179,000 Sed rate today is 78 CRP is elevated to 161 Blood culture showed no growth in 72 hours Urine culture was negative in 48 hours Ordered repeat flu swab as this really continues to look more like a viral syndrome to me. MRI and MRA of the brain tomorrow 2 view of the chest x-ray has been ordered for today She had another headache last night that seem to be migraine was treated with good results with plain Fioricet. Patient was given morphine and she did not like the way it made her feel, that that was the second time she had some morphine , has been discontinued. Also I discontinued her Percocet and she is n ow only on plain Fioricet. 04/30/2019 Patient remains afebrile no temperature in 96 hours Patient is now on room air and maintaining her oxygen saturations between 96 and 99% I repeated patient's influenza swab and it was negative once again Patient continues to run a normal white count Patient's chemistry panel is normal RA latex was negative SLE prep is pending Chest x-ray from yesterday actually looks worse but clinically the patient looks better. Patient has been on cefepime and Levaquin since she was admitted. I am somewhat confused by the appearance of the chest x-ray unless it has to do with hydration, because today she looks to have "turned the corner". Also she is continuing to maintain normal oxygen saturations. Blood cultures are negative x 96 hours. Patient may need another CT scan of the chest prior to discharge. Ordering a MRI and MRA of the brain today because of her tremors her persistent "migraines". Patient needed a low-dose of Ativan due to claustrophobia. In summary this patient was admitted with pneumonia, generalized weakness, fever, a past medical history of frequent migraines and irritable bowel syndrome. Patient tells me she was having 5 migraines per week and taking Goody powders. She and her mother also told me that she just recently last week got fired from her job. And also tells me that she saw a neurologist 3 years ago for her tremors was diagnosed with PTSD even though she has no history of significant trauma of any type. I do feel that there are some psychosocial issues involved here, but clearly she also had pneumonia for at least a week to 10 days prior to being admitted. And she was actually on Zithromax for 2 days prior to being admitted. Continue the same course and then switch over to p.o. antibiotics. Avoid other analgesics except Fioricet. Definite repeat either chest x-ray or CT scan of the chest until resolution
[2019-05-02] MEDS: DOCUSATE SODIUM 100 MG CAPSULE PO SCH (09:53)
[2019-05-02] MEDS: GUAIFENESIN 600 MG TABLET.SA PO SCH ×2 (09:56→22:20)
[2019-05-02 10:12] LABS: ABSOLUTE BASOPHILS # (AUTO) 0.2 10^3/uL (0.0-0.2); ABSOLUTE EOSINOPHILS # (AUTO) 0.3 10^3/uL (0.0-0.6); ABSOLUTE LYMPHOCYTES (AUTO) 1.5 10^3/uL (0.5-4.7); ABSOLUTE MONOCYTES (AUTO) 0.8 10^3/uL (0.1-1.4); ABSOLUTE NEUT (AUTO) 8.9 10^3/uL (1.7-8.2); BASOPHILS % (AUTO) 1.9 % (0-2); EOSINOPHILS % (AUTO) 2.5 % (0-6); HEMATOCRIT 34.1 % (36.0-47.0); LYMPHOCYTES % (AUTO) 12.7 % (13-45); MEAN CORPUSCULAR HGB CONC 35.1 g/dL (32.0-36.0); MEAN CORPUSCULAR VOLUME 85 fl (80-97); PLATELET COUNT 531 10^3/uL (150-450); RED BLOOD COUNT 3.99 10^6/uL (3.72-5.28); SEGMENTED NEUTROPHILS % (AUTO) 75.9 % (42-78); TOTAL CELLS COUNTED % (AUTO) 100 %; WHITE BLOOD COUNT 11.8 10^3/uL (4.0-10.5)
[2019-05-02 10:33] LABS: ANION GAP 10 (5-19); BLOOD UREA NITROGEN 7 mg/dL (7-20); CALCIUM 9.5 mg/dL (8.4-10.2); CARBON DIOXIDE 24 mmol/L (22-30); CHLORIDE 102 mmol/L (98-107); GLUCOSE 83 mg/dL (75-110); POTASSIUM 4.2 mmol/L (3.6-5.0)
[2019-05-02] MEDS ORDERED: KETOROLAC TROMETHAMINE INJ/PF 30 MG/1 ML SDV IV PRN (11:50)
[2019-05-02] MEDS ORDERED: SUMATRIPTAN SUCCINATE INJ/PF 6 MG/0.5 ML SDV SUBCUT ONE (13:00)
[2019-05-02] MEDS ORDERED: METHYLPREDNISOLONE INJ 40 MG/1 ML SDV IV SCH (14:00)
[2019-05-02] MEDS: PROPRANOLOL HCL 20 MG TABLET PO SCH ×2 (15:14→22:20)
[2019-05-03] MEDS: PROPRANOLOL HCL 20 MG TABLET PO SCH (06:11)
[2019-05-03 08:43] VITALS: BP 113/62
[2019-05-03] MEDS: GUAIFENESIN 600 MG TABLET.SA PO SCH (11:34)
[2019-05-03] MEDS: DOCUSATE SODIUM 100 MG CAPSULE PO SCH (11:34)
[2019-05-03] MEDS: FAMOTIDINE 20 MG TABLET PO SCH (11:34)
[2019-05-03 13:25] LABS: ANTINUCLEAR ANTIBODIES Negative (Negative)
--- NOTE | 2019-05-05 17:23 | PDOC DISCHARGE SUMMARY ---
Impression - Admit/DC Date/PCP Admission Date/Primary Care Provider: 04/25/19 16:50 Discharge Date: 05/03/19 - Discharge Diagnosis (1) Intention tremor Is this a current diagnosis for this admission?: Yes (2) Irritable bowel syndrome Is this a current diagnosis for this admission?: Yes (3) Migraines Is this a current diagnosis for this admission?: Yes (4) Pneumonia Is this a current diagnosis for this admission?: Yes (5) Sinus tachycardia Is this a current diagnosis for this admission?: Yes - Additional Information Resuscitation Status: Full Code Discharge Diet: Cardiac Discharge Activity: Activity As Tolerated, Balance Activity w/Rest, Slowly Increase Activity Referrals: [facility] [Outside] - 05/10/19 10:15 am (Patient is seeing Dr. Spain ---- Please bring a valid id and a list of medications) SILVIO MIRANDA MD [NO LOCAL MD] - 05/08/19 1:00 pm (Consider follow up with neurology for further evaluation and managment of your tremor and frequent headaches. The patient has a appointment in the [place] office with Dr. Simon. Formerly [facility] - [place] [id number] [address] [facility] [place] [address] Appointment line: [phone]) Prescriptions: Propranolol HCl [Inderal 20 mg Tablet] 20 mg PO Q8 #90 tablet Guaifenesin [Mucinex Sr 600 mg Tablet.sa] 600 mg PO Q12 #14 tablet.sa Levalbuterol Tartrate [Xopenex Hfa] 1 puff IH Q4HP PRN #1 hfa.aer.ad PRN Reason: Levalbuterol HCl [Xopenex Neb 1.25 mg/3 ml Ampul] 1.25 mg NEB RTQ6HP PRN #40 vial.neb PRN Reason: Home Medications: Fexofenadine HCl [Margaret Allergy] 60 mg PO DAILY 04/25/19 Acetaminophen [Tylenol 325 mg Tablet] 650 mg PO Q4HP PRN tablet 05/03/19 Guaifenesin [Mucinex Sr 600 mg Tablet.sa] 600 mg PO Q12 #14 tablet.sa 05/03/19 Guaifenesin [Robitussin Syrup 200 mg/10 ml Ud Cup] 200 mg PO Q8HP PRN udc 05/03/19 Levalbuterol HCl [Xopenex Neb 1.25 mg/3 ml Ampul] 1.25 mg NEB RTQ6HP PRN #40 vial.neb 05/03/19 Levalbuterol Tartrate [Xopenex Hfa] 1 puff IH Q4HP PRN #1 hfa.aer.ad 05/03/19 Propranolol HCl [Inderal 20 mg Tablet] 20 mg PO Q8 #90 tablet 05/03/19 History of Present Illiness History of Present Illness: Per H&P by Rizwan Beauchamp PA-C: GLENDA CALLEJAS is a 39 year old female who states that since last Tuesday or 6 days ago she started feeling bad. Darted off with feeling tired fever and chills and a light cough she said in a couple days that seem to get better but then by Tuesday the cough is getting worse. It is mostly nonproductive. He went to an urgent care 2 days ago on Tuesday she said they thought her she had an upper respiratory illness and put her on a Z-Nick. No flu swab no chest x-ray was performed. States today she started feeling worse with a "hurting to breathe", shortness of breath and just feeling more tired. Patient states she has had no chest pain per se but she does have chest wall pain with deep inspiration and expiration. No nausea no vomiting. Patient does not smoke. 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 Etiology is unknown, patient says she has had an MRI scan of the brain which was normal. Hospital Course Hospital Course: (1) Pneumonia Resolved; now maintaining oxygen saturations on room air while ambulatory. Discontinued to have an intermittent, productive, cough. Likely community-acquired due to gram-positive cocci including Streptococcus pneumonia. Influenza negative on admission. Cultures negative. The patient was admitted to [facility] on continuous cardiac telemetry. She was empirically provided IV vancomycin, Levaquin, and cefepime. These were discontinued as she remained afebrile, with negative cultures, and clinically improved. She did receive a full 7-day course of antibiotic therapy. She was further supported with scheduled and as needed nebulizer treatments, Robitussin, and pulmonary toilet. (2) Sinus tachycardia Resolved. Likely due to acute illness as well as anxiety. EKG on admission sinus tachycardia. CTA negative for PE. (3) Intention tremor Right upper extremity high amplitude high-frequency intention tremor. Has been evaluated in the past by neurology attributed to PTSD. MRI/MRA head negative for any acute abnormalities. Patient was offered propanolol but declined medication interventions. She has been provided a follow-up appointment with neurologist, Dr. Miranda, for May 08 for further evaluation. (4) Migraines Chronic migraine headaches. Denies any focal neurologic symptoms. MRI/MRA head negative for any acute abnormalities. She reported relief with Fioricet, however, with increased anxiety and tremor likely related to caffeine. She declined propanolol and gabapentin. Outpatient follow-up with neurology as mentioned above. (5) Irritable bowel syndrome Chronic and without exacerbation at this time. Outpatient PCP and gastroenterology follow-up. Physical Exam Vital Signs: Temp Pulse Resp BP Pulse Ox 98.1 F 85 16 113/62 96 05/03/19 09:31 05/03/19 09:31 05/03/19 09:31 05/03/19 07:10 05/03/19 09:31 General appearance: PRESENT: no acute distress, cooperative, disheveled, well- developed, well-nourished Head exam: PRESENT: atraumatic, normocephalic Eye exam: PRESENT: conjunctiva pink, EOMI, PERRLA. ABSENT: scleral icterus Mouth exam: PRESENT: moist, tongue midline Respiratory exam: PRESENT: clear to auscultation tashia, symmetrical, unlabored. ABSENT: rales, rhonchi, wheezes Cardiovascular exam: PRESENT: RRR. ABSENT: diastolic murmur, rubs, systolic mu rmur Vascular exam: PRESENT: normal capillary refill Extremities exam: PRESENT: full ROM. ABSENT: calf tenderness, clubbing, pedal edema Musculoskeletal exam: PRESENT: ambulatory Neurological exam: PRESENT: alert, awake, oriented to person, oriented to place, oriented to time, oriented to situation, CN II-XII grossly intact. ABSENT: motor sensory deficit Psychiatric exam: PRESENT: anxious, appropriate affect. ABSENT: homicidal ideation, suicidal ideation Skin exam: PRESENT: dry, intact, warm. ABSENT: cyanosis, rash Results Laboratory Results: WBC 11.8 10^3/uL (4.0-10.5) H 05/02/19 09:58 RBC 3.99 10^6/uL (3.72-5.28) 05/02/19 09:58 Hgb 12.0 g/dL (12.0-15.5) 05/02/19 09:58 Hct 34.1 % (36.0-47.0) L 05/02/19 09:58 MCV 85 fl (80-97) 05/02/19 09:58 MCH 30.0 pg (27.0-33.4) 05/02/19 09:58 MCHC 35.1 g/dL (32.0-36.0) 05/02/19 09:58 RDW 13.0 % (11.5-14.0) 05/02/19 09:58 Plt Count 531 10^3/uL (150-450) H 05/02/19 09:58 Lymph % (Auto) 12.7 % (13-45) L 05/02/19 09:58 [place] % (Auto) 7.0 % (3-13) 05/02/19 09:58 Eos % (Auto) 2.5 % (0-6) 05/02/19 09:58 Baso % (Auto) 1.9 % (0-2) 05/02/19 09:58 Absolute Neuts (auto) 8.9 10^3/uL (1.7-8.2) H 05/02/19 09:58 Absolute Lymphs (auto) 1.5 10^3/uL (0.5-4.7) 05/02/19 09:58 Absolute Monos (auto) 0.8 10^3/uL (0.1-1.4) 05/02/19 09:58 Absolute Eos (auto) 0.3 10^3/uL (0.0-0.6) 05/02/19 09:58 Absolute Basos (auto) 0.2 10^3/uL (0.0-0.2) 05/02/19 09:58 Total Counted 100 04/26/19 05:01 Seg Neutrophils % 75.9 % (42-78) 05/02/19 09:58 Seg Neuts % (Manual) 89 % (42-78) H 04/26/19 05:01 Band Neutrophils % 3 % (3-5) 04/26/19 05:01 Lymphocytes % (Manual) 7 % (13-45) L 04/26/19 05:01 Monocytes % (Manual) 1 % (3-13) L 04/26/19 05:01 Eosinophils % (Manual) 0 % (0-6) 04/26/19 05:01 Basophils % (Manual) 0 % (0-2) 04/26/19 05:01 Abs Neuts (Manual) 12.0 10^3/uL (1.7-8.2) H 04/26/19 05:01 Abs Lymphs (Manual) 0.9 10^3/uL (0.5-4.7) 04/26/19 05:01 Abs Monocytes (Manual) 0.1 10^3/uL (0.1-1.4) 04/26/19 05:01 Absolute Eos (Manual) 0.0 10^3/uL (0.0-0.6) 04/26/19 05:01 Abs Basophils (Manual) 0.0 10^3/uL (0.0-0.2) 04/26/19 05:01 Platelet Comment ADEQUATE 04/26/19 05:01 RBC Morph Comment NORMO-CYTIC/CHROMIC 04/26/19 05:01 ESR 78 mm/hr (0-20) H 04/29/19 09:06 PT 12.3 SEC (11.4-15.4) 04/25/19 13:40 INR 0.92 04/25/19 13:40 D-Dimer 0.54 ug/mL (0.00-0.50) H 04/25/19 13:40 VBG pH 7.42 (7.30-7.42) 04/25/19 15:53 VBG pCO2 38.8 mmHg (35-63) 04/25/19 15:53 VBG HCO3 24.5 mmol/L (20-32) 04/25/19 15:53 VBG Base Excess 0.1 mmol/L 04/25/19 15:53 Sodium 136.4 mmol/L (137-145) L 05/02/19 09:58 Potassium 4.2 mmol/L (3.6-5.0) 05/02/19 09:58 Chloride 102 mmol/L (98-107) 05/02/19 09:58 Carbon Dioxide 24 mmol/L (22-30) 05/02/19 09:58 Anion Gap 10 (5-19) 05/02/19 09:58 BUN 7 mg/dL (7-20) 05/02/19 09:58 Creatinine 0.46 mg/dL (0.52-1.25) L 05/02/19 09:58 Est GFR ( Amer) > 60 (>60) 05/02/19 09:58 Est GFR (MDRD) Non-Af > 60 (>60) 05/02/19 09:58 Glucose 83 mg/dL (75-110) 05/02/19 09:58 Lactic Acid 1.1 mmol/L (0.7-2.1) 04/25/19 15:53 Calcium 9.5 mg/dL (8.4-10.2) 05/02/19 09:58 Total Bilirubin 0.4 mg/dL (0.2-1.3) 04/25/19 13:40 Direct Bilirubin 0.0 mg/dL (0.0-0.4) 04/25/19 13:40 Neonat Total Bilirubin Not Reportable 04/25/19 13:40 Neonat Direct Bilirubin Not Reportable 04/25/19 13:40 Neonat Indirect Bili Not Reportable 04/25/19 13:40 AST 87 U/L (14-36) H 04/25/19 13:40 ALT 89 U/L (<35) 04/25/19 13:40 Alkaline Phosphatase 125 U/L (38-126) 04/25/19 13:40 Creatine Kinase 24 U/L (30-135) L 04/28/19 14:10 CK-MB (CK-2) < 0.22 ng/mL (<4.55) 04/28/19 14:10 Troponin I < 0.012 ng/mL 04/28/19 14:10 C-Reactive Protein 161.0 mg/L (<10.0) H 04/29/19 09:06 Total Protein 8.0 g/dL (6.3-8.2) 04/25/19 13:40 Albumin 4.7 g/dL (3.5-5.0) 04/25/19 13:40 Serum HCG, Qual NEGATIVE (NEGATIVE) 04/25/19 13:40 Urine Color STRAW 04/25/19 13:05 Urine Appearance CLEAR 04/25/19 13:05 Urine pH 7.0 (5.0-9.0) 04/25/19 13:05 Ur Specific [place] 1.004 04/25/19 13:05 Urine Protein NEGATIVE mg/dL (NEGATIVE) 04/25/19 13:05 Urine Glucose (UA) NEGATIVE mg/dL (NEGATIVE) 04/25/19 13:05 Urine Ketones NEGATIVE mg/dL (NEGATIVE) 04/25/19 13:05 Urine Blood SMALL (NEGATIVE) H 04/25/19 13:05 Urine Nitrite NEGATIVE (NEGATIVE) 04/25/19 13:05 Urine Bilirubin NEGATIVE (NEGATIVE) 04/25/19 13:05 Urine Urobilinogen NEGATIVE mg/dL (<2.0) 04/25/19 13:05 Ur Leukocyte Esterase NEGATIVE (NEGATIVE) 04/25/19 13:05 Urine WBC (Auto) 4 /HPF 04/25/19 13:05 Urine RBC (Auto) 1 /HPF 04/25/19 13:05 Squamous Epi Cells Auto 1 /HPF 04/25/19 13:05 Urine Mucus (Auto) RARE /LPF 04/25/19 13:05 Urine Ascorbic Acid NEGATIVE (NEGATIVE) 04/25/19 13:05 Rheumatoid Factor Cancelled 04/29/19 12:12 Rheumatoid Factor NEGATIVE (NEGATIVE) 04/29/19 12:12 Rheum Factor (Ref Lab) 04/29/19 12:12 Rheum Factor (Ref Lab) Cancelled 04/29/19 12:12 Anti-Nuclear Antibody Negative (Negative) 05/01/19 21:47 SS-A/Ro Antibody 04/29/19 12:12 SS-A/Ro Antibody Cancelled 04/29/19 12:12 SS-B/La Antibody 04/29/19 12:12 SS-B/La Antibody Cancelled 04/29/19 12:12 Double Strand DNA Ab 04/29/19 12:12 Double Strand DNA Ab Cancelled 04/29/19 12:12 Chromatin Antibody 04/29/19 12:12 Chromatin Antibody Cancelled 04/29/19 12:12 Smooth Musc &SKELP PROCESSOR Intrp 04/29/19 12:12 Smooth Musc &SKELP PROCESSOR Intrp Cancelled 02/09/20 12:12 Influenza A (Rapid) NEGATIVE (NEGATIVE) 04/29/19 17:30 Influenza B (Rapid) NEGATIVE (NEGATIVE) 04/29/19 17:30 04/25/19 04/28/19 13:40 14:10 CK-MB (CK-2) < 0.22 Troponin I < 0.012 < 0.012 Impressions: Chest X-Ray 04/25/19 13:02 IMPRESSION: Asymmetric opacities in the right lower lobe. Correlate with clinical findings to exclude a right lower lobe pneumonia. Chest/Abdomen CTA 04/26/19 00:00 IMPRESSION: No CT angio evidence of acute pulmonary emboli or thoracic aortic dissection Dense consolidation in the bilateral lower lobes worrisome for pneumonia. Minimal patchy right middle lobe airspace disease Head CT 04/28/19 00:00 IMPRESSION: NO ACUTE INTRACRANIAL IMAGING FINDINGS. EVIDENCE OF ACUTE STROKE: NO. Chest X-Ray 04/29/19 00:00 IMPRESSION: Increased bibasilar pleural and parenchymal opacities that could represent a combination of pleural fluid, atelectasis and/or pneumonia. Brain MRI with MRA 04/30/19 08:00 IMPRESSION: NORMAL MRA OF THE UPPER [place] OF [place]. Head MRI 04/30/19 08:00 IMPRESSION: NORMAL MRI OF THE BRAIN WITHOUT INTRAVENOUS GADOLINIUM CONTRAST. EVIDENCE OF ACUTE STROKE: NO. Plan Plan of Treatment: Patient is discharged home care. She is advised to [facility] 1 week. She is advised to follow-up with neurology at the earliest available appointment for further evaluation of her chronic migraines and intention tremor. She has been provided an appointment with Dr. Miranda on May 08 at 1 PM. She is instructed to establish with a local geological science teacher for further evaluation and management of her irritable bowel syndrome. She is advised to take her medications as prescribed. She is instructed to drink plenty of water, rest. She is encouraged to return to the emergency department as needed for concerning symptoms. Time Spent: Greater than 30 Minutes Stroke Is this a Stroke Patient?: No Acute Heart Failure - Is this a Heart Failure Patient?: No
== END 2019-05-03 11:15 | disposition home or self-care (01) | DRG 194 ==
LOC: ER 12:31 → EH 16:50 → 3N 18:50
PROVIDERS: ADMIT Hospitalist; ATTEND Hospitalist
DX: J13 Pneumonia due to Streptococcus pneumoniae (principal); K52.1 Toxic gastroenteritis and colitis; K58.2 Mixed irritable bowel syndrome; G25.2 Other specified forms of tremor; R00.0 Tachycardia, unspecified; T36.3X5A Adverse effect of macrolides, initial encounter; F41.9 Anxiety disorder, unspecified; G43.709 Chronic migraine without aura, not intractable, without status migrainosus; F40.240 Claustrophobia; Z79.899 Other long term (current) drug therapy; Z88.0 Allergy status to penicillin; Z88.2 Allergy status to sulfonamides; Z91.040 Latex allergy status
CPT/HCPCS: 36415; 70450; 70544; 70551; 71046; 71275; 80048; 80053; 81001; 82550; 82553; 82803; 83520; 83605; 84484; 84703; 85025; 85379; 85610; 85652; 86038; 86140; 86225; 86235; 86430; 87040; 87086; 87804; 93005; 93010; 94640; 96360; 99291; J0692; J1650; J1885; J1956; J2270; J2550; J3030; J3370; J3480; J3490; J7030; J7040; J7620